=== PATIENT | male | born 1960 | race Caucasian/White ===

== ENCOUNTER 2017-02-07 11:04 | Inpatient (IN) ==
--- NOTE | 2017-02-07 11:17 | Emergency Department Note ---
Disposition Clinical Impression: Congestive heart failure, Dyspnea, Elevated troponin I level Disposition: Admitted As Inpatient Condition: Good General Adult HPI - General Chief complaint: ED Shortness of Breath/Dyspnea Stated complaint: Leg/Stomach Swelling Time Seen by Provider: 02/07/17 11:14 Source: patient Limitations: no limitations - History of Present Illness Pain Scale: 2 - Related Data Home Medications Medication Instructions Recorded Confirmed Glimepiride [Amaryl] 8 mg PO QAM 08/18/16 02/07/17 Lisinopril [Zestril] 40 mg PO DAILY 08/18/16 02/07/17 Lovastatin [Mevacor] 20 mg PO DAILY 08/18/16 02/07/17 Metformin HCl [Glucophage] 1,000 mg PO BID 08/18/16 02/07/17 Ranitidine HCl [Zantac] 150 mg PO BID 08/18/16 02/07/17 SitaGLIPtin [Januvia] 100 mg PO DAILY 08/18/16 02/07/17 Tramadol HCl [Ultram] 50 mg PO DAILY PRN 08/18/16 02/07/17 Aspirin 325 mg PO DAILY 02/07/17 02/07/17 Furosemide [Lasix] 40 mg PO DAILY 02/07/17 02/07/17 Metoprolol [Lopressor] 25 mg PO BID 02/07/17 02/07/17 Allergies Allergy/AdvReac Type Severity Reaction Status Date / Time No Known Allergies Allergy Verified 08/18/16 09:07 Past Medical History - Past Medical History Medical history: Reports: diabetes, hyperlipidemia, hypertension Psychiatric history: Reports: no psych history - Social History Smoking Status: Never smoker Smokeless Tobacco Status: No Alcohol use: Reports: rarely, occasionally Drug use: Reports: none Physical Exam - General Limitations: no limitations General appearance: alert, in no apparent distress Course Vital Signs Temperature 98.1 F 02/07/17 11:08 Pulse Rate 94 02/07/17 11:08 Respiratory Rate 16 02/07/17 11:08 Blood Pressure 129/94 02/07/17 11:08 O2 Sat by Pulse Oximetry 98 02/07/17 11:08 Temperature 99 F 02/07/17 18:04 Pulse Rate 92 02/07/17 18:04 Respiratory Rate 16 02/07/17 18:04 Blood Pressure 123/85 02/07/17 18:04 O2 Sat by Pulse Oximetry 98 02/07/17 20:10 Oxygen Delivery Oxygen Delivery Room Air Medical Decision Making - Lab Data Result diagrams: 02/07/17 11:38 02/07/17 11:38 Lab Results 02/07/17 02/07/17 02/07/17 Range/Units 11:38 11:38 11:38 WBC 11.8 H (4.3-11.1) K/mcL RBC 5.32 (4.19-5.50) M/mcL Hgb 14.4 (12.9-16.9) g/dL Hct 46.5 (37.5-50.1) % MCV 87.4 (83.0-100.0) fL MCH 27.1 L (28.0-33.3) pg MCHC 31.0 L (31.6-35.5) g/dL RDW 16.9 H (11.5-14.5) % Plt Count 267 (140-400) K/mcL MPV 11.3 (9.4-12.4) fL Immature Gran % 0.4 (0-4) % Seg Neutrophils % 64.6 % Lymphocytes % 25.3 % Monocytes % 8.5 % Eosinophils % 0.8 % Basophils % 0.4 % Neutrophils # 7.6 (1.6-8.9) K/mcL Lymphocytes # 3.0 (0.6-4.6) K/mcL Monocytes # 1.0 (0.0-1.3) K/mcL Eosinophils # 0.1 (0.0-0.6) K/mcL Basophils # 0.1 (0.0-0.2) K/mcL Sodium 137 (136-145) mEq/L Potassium 4.2 (3.5-4.5) mEq/L Chloride 99 (98-109) mEq/L Carbon Dioxide 27 (19-29) mEq/L BUN 22 (8-26) mg/dL Creatinine 1.47 H (0.72-1.25) mg/dL Est GFR ( Amer) 60 (> 60) Est GFR (Non-Af Amer) 49 L (> 60) BUN/Creatinine Ratio 15 (6-26) Glucose 223 H (70-99) mg/dL Est Mean Plasma Glucose mg/dl Hemoglobin A1c ( - 5.6) % Calculated Osmolality 294 (280-300) Calcium 10.1 (8.6-10.8) mg/dL Total Bilirubin 2.2 H (0.2-1.2) mg/dL AST 28 (5-34) Units/L ALT 15 (0-55) Units/L Alkaline Phosphatase 101 (38-126) Units/L Troponin I 0.04 H* (0-0.03) ng/mL B-Natriuretic Peptide (0-100) pg/mL Serum Total Protein 6.8 (6.0-8.3) g/dL Albumin 3.5 (3.5-5.0) g/dL Globulin 3.3 (2.4-3.5) g/dL Albumin/Globulin Ratio 1.1 (1.1-2.2) 02/07/17 02/07/17 Range/Units 11:38 11:41 WBC (4.3-11.1) K/mcL RBC (4.19-5.50) M/mcL Hgb (12.9-16.9) g/dL Hct (37.5-50.1) % MCV (83.0-100.0) fL MCH (28.0-33.3) pg MCHC (31.6-35.5) g/dL RDW (11.5-14.5) % Plt Count (140-400) K/mcL MPV (9.4-12.4) fL Immature Gran % (0-4) % Seg Neutrophils % % Lymphocytes % % Monocytes % % Eosinophils % % Basophils % % Neutrophils # (1.6-8.9) K/mcL Lymphocytes # (0.6-4.6) K/mcL Monocytes # (0.0-1.3) K/mcL Eosinophils # (0.0-0.6) K/mcL Basophils # (0.0-0.2) K/mcL Sodium (136-145) mEq/L Potassium (3.5-4.5) mEq/L Chloride (98-109) mEq/L Carbon Dioxide (19-29) mEq/L BUN (8-26) mg/dL Creatinine (0.72-1.25) mg/dL Est GFR ( Amer) (> 60) Est GFR (Non-Af Amer) (> 60) BUN/Creatinine Ratio (6-26) Glucose (70-99) mg/dL Est Mean Plasma Glucose 214 mg/dl Hemoglobin A1c 9.1 H ( - 5.6) % Calculated Osmolality (280-300) Calcium (8.6-10.8) mg/dL Total Bilirubin (0.2-1.2) mg/dL AST (5-34) Units/L ALT (0-55) Units/L Alkaline Phosphatase (38-126) Units/L Troponin I (0-0.03) ng/mL B-Natriuretic Peptide 3514 H (0-100) pg/mL Serum Total Protein (6.0-8.3) g/dL Albumin (3.5-5.0) g/dL Globulin (2.4-3.5) g/dL Albumin/Globulin Ratio (1.1-2.2) Attestation Statement - Attestation Attestation: I examined this patient and my medical decision-making was reviewed with the Resident Physician. I agree with the documented findings, disposition and treatment plan as described except to the extent set forth below. [id number] time provided in conjunction with the resident physician Dr. Torres Patient complains of progressive dyspnea and edema over the past 2 weeks. He is sitting upright on the edge of the stretcher at the time I examined appears in no acute respiratory distress. Peripheral edema present on exam. Recent echo indicates systolic ejection fraction 55%. Plan of care and management discussed by me with the resident physician
--- NOTE | 2017-02-07 11:39 | Emergency Department Note ---
Disposition Clinical Impression: Elevated troponin I level Congestive heart failure Qualifiers: Congestive heart failure type: unspecified congestive heart failure type Congestive heart failure chronicity: acute Qualified Code(s): I50.9 - Heart failure, unspecified Dyspnea Qualifiers: Dyspnea type: dyspnea on exertion Qualified Code(s): R06.09 - Other forms of dyspnea Disposition: Admitted As Inpatient Time of Disposition: 12:55 General Adult HPI - General Chief complaint: ED Shortness of Breath/Dyspnea Stated complaint: Leg/Stomach Swelling Time Seen by Provider: 02/07/17 11:14 Source: patient Limitations: no limitations Nursing Notes Reviewed: Yes Vital Signs Reviewed: Yes - History of Present Illness HPI Narrative: This is a 56-year-old male with a past medical history of chronic kidney disease , diabetes, hyperlipidemia, hypertension who presents to the emergency department with a 3 month history of worsening shortness of breath. He states that 3 months ago he was diagnosed with pneumonia and received a 10 day course of antibiotics. He stated that his shortness of breath did not improve afterwards, and only gotten worse. He states that he is having excessive swelling in his lower extremities as well as abdomen. He states that he is becoming short of breath doing daily activities. He has been taking Lasix at home daily 40 mg per day. He states that this is not helped or alleviating shortness of breath. Patient denies any history of smoking or being around smokers. Pain Scale: 2 - Related Data Home Medications Medication Instructions Recorded Confirmed Aspirin Enteric Coated [Aspirin EC] 81 mg PO DAILY 08/18/16 08/18/16 Canagliflozin [Invokana] 300 mg PO DAILY 08/18/16 08/18/16 Glimepiride [Amaryl] 8 mg PO DAILY 08/18/16 08/18/16 Lisinopril [Zestril] 40 mg PO DAILY 08/18/16 08/18/16 Lovastatin [Mevacor] 20 mg PO DAILY 08/18/16 08/18/16 Metformin HCl [Glucophage] 1,000 mg PO BID 08/18/16 08/18/16 Ranitidine HCl [Zantac] 150 mg PO DAILY 08/18/16 08/18/16 SitaGLIPtin [Januvia] 100 mg PO DAILY 08/18/16 08/18/16 Tramadol HCl [Ultram] 50 mg PO QID PRN 08/18/16 08/18/16 Previous Rx's Medication Instructions Recorded Metoprolol Tartrate [Lopressor] 50 mg PO BID #30 tablet 08/18/16 Allergies Allergy/AdvReac Type Severity Reaction Status Date / Time No Known Allergies Allergy Verified 08/18/16 09:07 All systems ED: reviewed and negative except as stated. Constitutional: Reports: weight change (Weight gain of 10 pounds in the last 2 weeks). Denies: fever, chills ENT ED: Reports: other (Hoarseness) Cardiovascular: Reports: dyspnea on exertion, orthopnea, edema, paroxysmal nocturnal dyspnea. Denies: chest pain, palpitations Respiratory: Reports: cough Gastrointestinal: Denies: abdominal pain, nausea, vomiting, constipation Genitourinary: Reports: other (Oliguric) Musculoskeletal: Denies: back pain, neck pain, joint swelling, arthralgia Neurological: Denies: headache Endocrine: Reports: fatigue Past Medical History - Past Medical History Medical history: Reports: diabetes, hyperlipidemia, hypertension Psychiatric history: Reports: no psych history - Social History Smoking Status: Never smoker Smokeless Tobacco Status: No Alcohol use: Reports: rarely, occasionally Drug use: Reports: none Physical Exam - General Limitations: no limitations General appearance: alert, other (56-year-old male who is not obese but appears to be edematous in the abdomen and lower 70s) - ENT ENT exam: mucous membranes moist - Neck Neck exam: Present: trachea midline. Absent: tenderness, meningismus, lymphadenopathy - Chest Chest inspection: Present: normal inspection, symmetric chest wall rise. Absent : tenderness, rash, abscess - Respiratory Respiratory exam: Present: other (Diminished breath sounds in the right lower lobe). Absent: respiratory distress - Abdominal Exam Abdominal exam: Present: Non-Tender, distention, other (Abdomen is firm, periumbilical hernia). Absent: guarding - Extremities Exam Extremities exam: Present: pedal edema (3+ bilaterally) - Skin Skin exam: Present: warm, dry Course Course Narrative: This is a 56-year-old male who presented to the emergency department with increasing shortness of breath over the last 3 months as well as 10 pounds weight gain in the last 2 weeks, less urine output, and increasing swelling of the lower extremities and abdomen. This is immediately concerned for congestive heart failure, chronic kidney disease, hepatic failure. We are going to obtain a chest x-ray, EKG, BMP, BNP, CBC. - Reevaluation(s) Reevaluation #1: Patient has an elevated troponin of 0.04, an elevated BNP of 3514. He also has a chest x-ray that has a significant right-sided pleural effusion. Due to failure of his outpatient management and increasing symptoms of shortness of breath, lower extremity edema, and abdominal distention, I will admit this patient to the hospital at this time for management of his congestive heart failure. I spoke with the hospitalist Dr. Degroot he has agreed to accept the admission. Time: 12:50 Vital Signs Temperature 98.1 F 02/07/17 11:08 Pulse Rate 94 02/07/17 11:08 Respiratory Rate 16 02/07/17 11:08 Blood Pressure 129/94 02/07/17 11:08 O2 Sat by Pulse Oximetry 98 02/07/17 11:08 Temperature 98.1 F 02/07/17 11:08 Pulse Rate 94 02/07/17 11:08 Respiratory Rate 16 02/07/17 11:08 Blood Pressure 129/94 02/07/17 11:08 O2 Sat by Pulse Oximetry 98 02/07/17 11:08 Oxygen Delivery Oxygen Delivery Room Air Medical Decision Making - Lab Data Result diagrams: 02/07/17 11:38 02/07/17 11:38 Lab Results 02/07/17 02/07/17 02/07/17 Range/Units 11:38 11:38 11:38 WBC 11.8 H (4.3-11.1) K/mcL RBC 5.32 (4.19-5.50) M/mcL Hgb 14.4 (12.9-16.9) g/dL Hct 46.5 (37.5-50.1) % MCV 87.4 (83.0-100.0) fL MCH 27.1 L (28.0-33.3) pg MCHC 31.0 L (31.6-35.5) g/dL RDW 16.9 H (11.5-14.5) % Plt Count 267 (140-400) K/mcL MPV 11.3 (9.4-12.4) fL Immature Gran % 0.4 (0-4) % Seg Neutrophils % 64.6 % Lymphocytes % 25.3 % Monocytes % 8.5 % Eosinophils % 0.8 % Basophils % 0.4 % Neutrophils # 7.6 (1.6-8.9) K/mcL Lymphocytes # 3.0 (0.6-4.6) K/mcL Monocytes # 1.0 (0.0-1.3) K/mcL Eosinophils # 0.1 (0.0-0.6) K/mcL Basophils # 0.1 (0.0-0.2) K/mcL Sodium 137 (136-145) mEq/L Potassium 4.2 (3.5-4.5) mEq/L Chloride 99 (98-109) mEq/L Carbon Dioxide 27 (19-29) mEq/L BUN 22 (8-26) mg/dL Creatinine 1.47 H (0.72-1.25) mg/dL Est GFR ( Amer) 60 (> 60) Est GFR (Non-Af Amer) 49 L (> 60) BUN/Creatinine Ratio 15 (6-26) Glucose 223 H (70-99) mg/dL Calculated Osmolality 294 (280-300) Calcium 10.1 (8.6-10.8) mg/dL Total Bilirubin 2.2 H (0.2-1.2) mg/dL AST 28 (5-34) Units/L ALT 15 (0-55) Units/L Alkaline Phosphatase 101 (38-126) Units/L Troponin I 0.04 H* (0-0.03) ng/mL B-Natriuretic Peptide (0-100) pg/mL Serum Total Protein 6.8 (6.0-8.3) g/dL Albumin 3.5 (3.5-5.0) g/dL Globulin 3.3 (2.4-3.5) g/dL Albumin/Globulin Ratio 1.1 (1.1-2.2) 02/07/17 Range/Units 11:38 WBC (4.3-11.1) K/mcL RBC (4.19-5.50) M/mcL Hgb (12.9-16.9) g/dL Hct (37.5-50.1) % MCV (83.0-100.0) fL MCH (28.0-33.3) pg MCHC (31.6-35.5) g/dL RDW (11.5-14.5) % Plt Count (140-400) K/mcL MPV (9.4-12.4) fL Immature Gran % (0-4) % Seg Neutrophils % % Lymphocytes % % Monocytes % % Eosinophils % % Basophils % % Neutrophils # (1.6-8.9) K/mcL Lymphocytes # (0.6-4.6) K/mcL Monocytes # (0.0-1.3) K/mcL Eosinophils # (0.0-0.6) K/mcL Basophils # (0.0-0.2) K/mcL Sodium (136-145) mEq/L Potassium (3.5-4.5) mEq/L Chloride (98-109) mEq/L Carbon Dioxide (19-29) mEq/L BUN (8-26) mg/dL Creatinine (0.72-1.25) mg/dL Est GFR ( Amer) (> 60) Est GFR (Non-Af Amer) (> 60) BUN/Creatinine Ratio (6-26) Glucose (70-99) mg/dL Calculated Osmolality (280-300) Calcium (8.6-10.8) mg/dL Total Bilirubin (0.2-1.2) mg/dL AST (5-34) Units/L ALT (0-55) Units/L Alkaline Phosphatase (38-126) Units/L Troponin I (0-0.03) ng/mL B-Natriuretic Peptide 3514 H (0-100) pg/mL Serum Total Protein (6.0-8.3) g/dL Albumin (3.5-5.0) g/dL Globulin (2.4-3.5) g/dL Albumin/Globulin Ratio (1.1-2.2) - Radiology Data Radiology results reviewed: Yes I reviewed the patient's radiology results. - EKG Data EKG #1 EKG attestation: Yes I reviewed and interpreted this EKG. EKG results narrative: 02/07/2017 11:57 Ventricular rate 90 bpm, MN interval 208 ms, QRS duration 98 ms, QT 381 ms, QTC 432 ms, normal axis. Sinus rhythm with occasional premature ventricular complexes. This is unchanged from a previous EKG performed on 08/09/2016. There are no new ischemic ST changes.
[2017-02-07 11:47] LABS: Basophils # 0.1 K/mcL (0.0-0.2); Basophils % 0.4 %; Eosinophils # 0.1 K/mcL (0.0-0.6); Eosinophils % 0.8 %; Hematocrit 46.5 % (37.5-50.1); Hemoglobin 14.4 g/dL (12.9-16.9); Immature Granulocytes % 0.4 % (0-4); Lymphocytes % 25.3 %; Mean Corpuscular Hemoglobin 27.1 pg (28.0-33.3); Mean Corpuscular Volume 87.4 fL (83.0-100.0); Mean Platelet Volume 11.3 fL (9.4-12.4); Monocytes % 8.5 %; Neutrophils # 7.6 K/mcL (1.6-8.9); Platelet Count 267 K/mcL (140-400); Red Blood Count 5.32 M/mcL (4.19-5.50); Red Cell Distribution Width 16.9 % (11.5-14.5); Segmented Neutrophils % 64.6 %
[2017-02-07 12:00] LABS: Albumin 3.5 g/dL (3.5-5.0); Albumin/Globulin Ratio 1.1 (1.1-2.2); Bilirubin,Total 2.2 mg/dL (0.2-1.2); Calcium 10.1 mg/dL (8.6-10.8); Globulin 3.3 g/dL (2.4-3.5); Potassium 4.2 mEq/L (3.5-4.5); Total Protein 6.8 g/dL (6.0-8.3)
[2017-02-07] MEDS ORDERED: Furosemide 40 MG TABLET PO ONE (12:33)
[2017-02-07] MEDS ORDERED: Ondansetron 4 MG/2 ML VIAL IVP PRN (13:34)
[2017-02-07] MEDS ORDERED: Naloxone 0.4 MG/ML INJ IVP PRN (13:34)
[2017-02-07] MEDS ORDERED: Acetaminophen 325 MG TABLET PO PRN (13:34)
--- NOTE | 2017-02-07 13:56 | Internal Med History&Physical ---
<RiveraDariana Chambers - Last Filed: 02/07/17 14:08> Date of Encounter: 02/07/17 Time of Encounter: 13:54 Assessment and Plan (1) Recurrent right pleural effusion Current visit: Yes Status: Acute Presented with worsening shortness of breath for 3 months prior to presentation. 02/05/[address] with moderate to large right pleural effusion with associated atelectatic changes. Suspect this is cause of shortness of breath. 08/2016 echo with EF 55%, and indeterminate diastolic dysfunction. Diuresis with IV Lasix, Zaroxolyn. IR consulted for thoracentesis. Repeat echo pending (2) Ascites Current visit: Yes Status: Acute 02/05/[address] with moderate amount of ascites. Drinks occasional etoh, LFTs normal. Bilirubin 2.2. Suspect secondary to congestion with fluids overload. RUQ US pending. Monitor repeat LFTs Qualifiers: Ascites type: other type Qualified Code(s): R18.8 - Other ascites (3) Essential hypertension Current visit: Yes Status: Acute per hx. BP controlled. Cont home BP medications. Monitor BP and titrate PRN (4) Diabetes Current visit: Yes Status: Acute per hx. Control unknown . Holding home oral hypoglycemics. SSI while inpatient. Monitor blood sugar and titrate PRN Qualifiers: Diabetes mellitus type: type 2 Diabetes mellitus complication status: without complication Diabetes mellitus terminal operations manager insulin use: without terminal operations manager use Qualified Code(s): E11.9 - Type 2 diabetes mellitus without complications (5) CAD (coronary artery disease) Current visit: Yes Status: Acute 08/2016 [facility] with mild disease. Denies CP. Cont home ASA, statin, BB Qualifiers: Coronary Disease-Associated Artery/Lesion type: [place] artery [place] vs. transplanted heart: [place] heart Associated angina: without angina Qualified Code(s): I25.10 - Atherosclerotic heart disease of [place] coronary artery without angina pectoris (6) DVT prophylaxis Current visit: Yes Status: Acute SCDs for now; can add prophylaxis once thoracenetsis completed Internal Medicine - H&P: HPI Chief complaint: SOB Admitted From: Home History of present illness: Mr. Rios is a 56 year old male with PMH diabetes, CAD and HTN who presented to [facility] on 02/07/2017 with complaints of shortness of breath. He is placed in observation status for further workup and treatment. Information obtained from chart review and patient report. Patient reports progressively worsening shortness of breath for the last 2 or 3 months. Now says lower extremities are swelling over the last 2-3 weeks along with weight gain and fatigue. Says he is so short of breath that he has to stop to rest after walking a few steps. He is on Lasix at home and reports medication compliance. He does not watch his salt intake. Still short of breath all my exam no change from presentation. Denies chest pain. Past Med Surg Social Fam HX - Past Medical History Medical history: diabetes, hyperlipidemia, hypertension Psychiatric history: no psych history - Past Surgical History Surgical History: non-contributory - Social History Smoking Status: Never smoker Smokeless Tobacco Status: No Alcohol use: rarely, occasionally Drug use: none - Family History Mother Hx Family Cardiac Disorders: Yes Father Living Status: Age at : 56 Cause of : Lung CA Hx Family Cancer: Yes (Lung) Internal Medicine - H&P: Meds Glimepiride [Amaryl] 8 mg PO QAM 08/18/16 [History] Lisinopril [Zestril] 40 mg PO DAILY 08/18/16 [History] Lovastatin [Mevacor] 20 mg PO DAILY 08/18/16 [History] Metformin HCl [Glucophage] 1,000 mg PO BID 08/18/16 [History] Ranitidine HCl [Zantac] 150 mg PO BID 08/18/16 [History] SitaGLIPtin [Januvia] 100 mg PO DAILY 08/18/16 [History] Tramadol HCl [Ultram] 50 mg PO DAILY PRN 08/18/16 [History] Aspirin 325 mg PO DAILY 02/07/17 [History] Furosemide [Lasix] 40 mg PO DAILY 02/07/17 [History] Metoprolol [Lopressor] 25 mg PO BID 02/07/17 [History] 3 Allergy/AdvReac Type Severity Reaction Status Date / Time No Known Allergies Allergy Verified 08/18/16 09:07 All Systems PM: A 10-system review of systems was performed and is negative for pertinent findings except as documented above in the HPI. - Constitutional Constitutional: weight gain, no chills, no fever(s), no night sweats - EENT Eyes: no change in vision, no discharge, no pain, no photophobia Ears: no ear discharge, no ear pain, no tinnitus Nose, mouth and throat: no dysphagia, no nasal discharge, no neck pain, no sore throat - Cardiovascular Cardiovascular ROS IM: no chest pain, no diaphoresis, no dyspnea, no lightheadedness, no palpitations, no syncope - Respiratory Respiratory: dyspnea, dyspnea on exertion, no cough, no wheezing, no excessive phlegm production - Gastrointestinal Gastrointestinal: no abdominal pain, no diarrhea, no hematemesis, no hematochezia, no melena, no nausea, no vomiting - Musculoskeletal Musculoskeletal ROS IM: joint swelling, no numbness, no tingling - Integumentary Integumentary IM: no rash, no unusual bruising - Neurological Neurological ROS: no confusion, no convulsions, no focal weakness, no numbness, no tingling, no tremor(s) - Hematologic/Lymphatic Hematologic/Lymphatic: no easy bruising - Constitutional Vitals: Temp Pulse Resp BP Pulse Ox 98.1 F 94 18 106/86 98 02/07/17 11:08 02/07/17 11:08 02/07/17 13:21 02/07/17 13:21 02/07/17 11:08 General appearance: Present: mild distress, A&O X 3, morbidly obese - Head Head exam: Present: atraumatic, normocephalic - Eye Eye exam: Present: PERRL, conjuntiva pink, sclera anicteric Pupils: Present: PERRL - Neck Neck exam general surgery: Present: supple, trachea midline. Absent: lymphadenopathy - Respiratory Respiratory exam: Present: decreased breath sounds (right lower lobe diminished , poor air exchange ), CTAB. Absent: accessory muscle use, rales, rhonchi, wheezes - Cardiovascular Cardiovascular exam: Present: RRR, +S1, +S2. Absent: diastolic murmur, gallop, rubs, systolic murmur - GI/Abdominal GI/Abdominal exam: Present: distended, firm, normal bowel sounds, soft, no peritoneal signs. Absent: tenderness - Extremities Exam Extremities exam: Present: pedal edema, warm, radial pulses palpable and symmetrical. Absent: calf tenderness, cyanotic - Neurological Exam Neurological exam: Present: CN II-XII intact, oriented X3, no focal deficits. Absent: pronater drift, facial droop, speech deficit - Skin Skin exam: Present: dry, intact Internal Med - H&P Results - Labs CBC & Chem 7: 02/07/17 11:38 02/07/17 11:38 <Mg Martino - Last Filed: 02/07/17 18:08> Date of Encounter: 02/07/17 Internal Medicine - H&P: HPI History of present illness: Mr. Rios is a 56 year old male All Systems PM: A 10-system review of systems was performed and is negative for pertinent findings except as documented above in the HPI. - Constitutional Vitals: Temp Pulse Resp BP Pulse Ox 97.7 F 67 17 117/91 92 02/07/17 14:09 02/07/17 16:04 02/07/17 14:09 02/07/17 16:04 02/07/17 14:09 Internal Med - H&P Results - Labs CBC & Chem 7: 02/07/17 11:38 02/07/17 11:38 - Impressions ITS Impressions Abdomen Ultrasound 02/07/17 15:52 IMPRESSION: Moderate ascites. Sludge and stones within the gallbladder with no definite sonographic cholecystitis. If there is clinical concern a nuclear medicine hepatobiliary scan could always be performed. D/ / 02/07/2017 17:36:27 Arnel Mendez MD / annetta Interpreting Provider: Arnel Mendez MD - Attending Attestation I have slowly seen and examined the patient and discussed the plan with advanced nurse practitioner. Patient came in with the complaint of orthopnea increased bilateral leg edema and in ER chest x-ray and CT showed right-sided pleural effusion as well as abdominal ascites. We suspect that if ascites is probably due to right-sided failure and an ultrasound of the liver has been ordered. Troponin are slightly elevated in the range of 0.04 which seem more like demand ischemia due to CHF. Our plan is to aggressively diurese patient with the IV Lasix 80 twice a day and Zaroxolyn 10 while keeping an eye on electrolytes as patient has been returning with this problem again and again. His EF is 55% and chest x-ray does not show significant moderate edema but I suspect as he will diurese him his overall condition will improve. In such case slight elevation of creatinine should be acceptable. Right pleural effusion will be tapped by a radiologist to make sure that it is not infected.
[2017-02-07 15:29] LABS: INR 1.5; Prothrombin Time 16.8 Seconds (9.4-12.1)
[2017-02-07] MEDS ORDERED: traMADol 50 MG TABLET PO PRN (15:45)
[2017-02-07] MEDS ORDERED: D5% in Water 1,000 ML IVC PRN (15:46)
[2017-02-07] MEDS ORDERED: Dextrose Gel 15 GM PO PRN ×2 (15:46)
[2017-02-07] MEDS ORDERED: *HR* Dextrose 50 % in Water (Syg) 50 ML SYRINGE IVP PRN (15:46)
[2017-02-07] MEDS: Furosemide 40 MG/4 ML VIAL IVP SCH ×2 (16:04→18:05)
[2017-02-07 16:19] LABS: Hemoglobin A1C 9.1 %
[2017-02-07 17:14] LABS: RBC,Pleural Fluid < 0.002 M/mcL
[2017-02-07] MEDS: metOLazone 5 MG TABLET PO SCH (17:36)
[2017-02-07] MEDS: Insulin LISPRO 300 UNITS/3 ML VIAL SQ SCH ×2 (17:44→20:47)
[2017-02-07 18:02] LABS: LDH,Pleural Fluid 63 Units/L (No Ref Range)
[2017-02-07] MEDS ORDERED: Furosemide 20 MG/2 ML VIAL IVP ONE (18:03)
[2017-02-07 19:24] LABS: Appearance of Pleural Fl Clear (Clear)
[2017-02-07] MEDS: Famotidine 20 MG TABLET PO SCH (20:17)
[2017-02-08 05:05] LABS: Hematocrit 41.5 % (37.5-50.1); Hemoglobin 13.5 g/dL (12.9-16.9); Mean Corpuscular HGB Conc 32.5 g/dL (31.6-35.5); Mean Corpuscular Hemoglobin 27.7 pg (28.0-33.3); Mean Corpuscular Volume 85.2 fL (83.0-100.0); Mean Platelet Volume 11.1 fL (9.4-12.4); Platelet Count 209 K/mcL (140-400); Red Blood Count 4.87 M/mcL (4.19-5.50); Red Cell Distribution Width 16.8 % (11.5-14.5)
[2017-02-08 05:48] LABS: Alanine Aminotransferase 15 Units/L (0-55); Albumin/Globulin Ratio 1.2 (1.1-2.2); Alkaline Phosphatase 92 Units/L (38-126); Aspartate Amino Transferase 24 Units/L (5-34); BUN/Creatinine Ratio 16 (6-26); Bilirubin,Total 1.8 mg/dL (0.2-1.2); Blood Urea Nitrogen 22 mg/dL (8-26); Calcium 9.4 mg/dL (8.6-10.8); Carbon Dioxide 28 mEq/L (19-29); Chloride 100 mEq/L (98-109); Globulin 2.6 g/dL (2.4-3.5); Glucose 152 mg/dL (70-99); Osmolality,Calculated 292 (280-300); Sodium 138 mEq/L (136-145); Total Protein 5.7 g/dL (6.0-8.3); eGFR For African Americans > 60 (> 60); eGFR For Non-African Americans 54 (> 60)
[2017-02-08 05:49] LABS: Albumin 3.1 g/dL (3.5-5.0)
[2017-02-08] MEDS: Furosemide 40 MG/4 ML VIAL IVP SCH ×2 (08:12→17:12)
[2017-02-08] MEDS: metOLazone 5 MG TABLET PO SCH (08:13)
[2017-02-08] MEDS: Famotidine 20 MG TABLET PO SCH ×2 (08:14→20:23)
[2017-02-08] MEDS: Aspirin 325 MG TABLET PO SCH (08:15)
[2017-02-08] MEDS: Insulin LISPRO 300 UNITS/3 ML VIAL SQ SCH ×5 (08:29→20:20)
[2017-02-08] MEDS ORDERED: Lisinopril 20 MG TABLET PO SCH (09:00)
--- NOTE | 2017-02-08 10:23 | Internal Med Progress Note ---
Date of Encounter: 02/08/17 Time of Encounter: 09:10 - Assessment and plan (1) Recurrent right pleural effusion Current Visit: Yes Status: Acute Assessment and plan: Patient had a right thoracentesis yesterday, peripheral smear is pending. Chest CT prior to procedure showed moderate to large right pleural effusion and minimal left. There are indeterminate bilateral pulmonary nodules measuring up to 7.6 mm., Also noted was ascites. Patient will need to follow-up with a CT at 6-12 months for reevaluation of the nodules. Patient states that he is breathing significantly better, he is no longer dyspneic with exertion. He is not requiring minimal oxygen. Room air sats in the mid to high 90s. Continue to monitor labs, vitals, patient condition. Oxygen as needed to maintain sats greater than 92%. (2) CKD (chronic kidney disease) stage 3, GFR 30-59 ml/min Current Visit: Yes Status: Chronic Assessment and plan: Serum creatinine 1.35, GFR 54. This appears to be right about patient's baseline. Is improved since yesterday. Avoid nephrotoxins. (3) Congestive heart failure Current Visit: Yes Status: Acute Assessment and plan: Acute on chronic. BNP is 3514. Patient has large amount of lower extremity edema, bilateral extremities to knees are hard, +4 pitting edema. Patient states his legs are a little bit worse than normal. We will continue to diurese. Patient had pleural effusion with thoracentesis to right side yesterday, also has a small left pleural effusion. His lungs are diminished and with rails padded throughout. Echocardiogram in August shows normal systolic function with LVEF of 55%, normal RV function, moderately dilated left atrium, moderate MR, mild ME, and rheumatic appearing mitral valve. Continue diuresis IV Lasix Continue telemetry 1.5 L fluid restriction, low sodium diet, daily weights, strict I and O. Qualifiers: Congestive heart failure type: unspecified congestive heart failure type Congestive heart failure chronicity: acute on chronic Qualified Code(s): I50.9 - Heart failure, unspecified (4) Dyspnea Current Visit: Yes Status: Acute Assessment and plan: Patient reports increasing dyspnea recently, most likely due to pleural effusion and ascites, CHF exacerbation. States that he is significantly better at this time after thoracentesis yesterday. He will stay for continued diuresis. We will continue to monitor his condition and vitals including pulse ox. Oxygen as needed to maintain sats greater than 92%. Qualifiers: Dyspnea type: dyspnea on exertion Qualified Code(s): R06.09 - Other forms of dyspnea (5) Elevated troponin I level Current Visit: Yes Status: Acute Assessment and plan: Patient has mild, flat elevation of troponin in the setting of congestive heart failure, and states 3 renal disease. He denies chest pain. Echo as stated above. Patient had C in August, with mild nonobstructive coronary artery disease in the LV is normal with an EF of 50-55%. Continue supply assistant vital signs Treat chest pain with aspirin, nitroglycerin. (6) Essential hypertension Current Visit: Yes Status: Chronic Assessment and plan: Well-controlled. Continue home medications. (7) Diabetes Current Visit: Yes Status: Chronic Assessment and plan: Uncontrolled. A1c is 9.1. Continue sliding scale insulin, diabetic diet, Accu- Cheks before meals and at bedtime. Consider referral to diabetes education on discharge. Qualifiers: Diabetes mellitus type: type 2 Diabetes mellitus complication status: without complication Diabetes mellitus [facility] insulin use: without [facility] use Qualified Code(s): E11.9 - Type 2 diabetes mellitus without complications (8) CAD (coronary artery disease) Current Visit: Yes Status: Acute Assessment and plan: Chronic. Continue aspirin, beta gloria. Qualifiers: Coronary Disease-Associated Artery/Lesion type: [place] artery [place] vs. transplanted heart: [place] heart Associated angina: without angina Qualified Code(s): I25.10 - Atherosclerotic heart disease of [place] coronary artery without angina pectoris (9) Ascites Current Visit: Yes Status: Acute Assessment and plan: Patient with moderate amount of ascites surrounding the liver, it is grossly unremarkable in its appearance. Patient denies liver disease. Abdomen is distended and hard. There is no elevation in the AST and ALT, albumin is 3.1. We will continue to monitor. Qualifiers: Ascites type: other type Qualified Code(s): R18.8 - Other ascites (10) DVT prophylaxis Current Visit: Yes Status: Acute Assessment and plan: Patient is ambulatory. KELSEY oneale for DVT prophylaxis as well as peripheral edema. - Time Spent With Patient less than 15 minutes - Subjective Interval history: Patient was seen and assessed at 9:10 AM. There are multiple family members in the room. He is sitting up on the side of the bed and states that he feels better than he has felt a very long time. He denies shortness of breath with exertion. His abdomen is hard and distended, he denies pain. Family states that his abdomen appears larger and then it does normally, patient does not appear to be concerned. Patient is agreeable to staying again for further diuresis. - Constitutional Vitals: Temp Pulse Resp BP Pulse Ox 97.9 F 82 16 128/84 97 02/08/17 07:26 02/08/17 07:26 02/08/17 07:26 02/08/17 07:26 02/08/17 07:26 General appearance: Present: A&O X 3, morbidly obese, pleasant, no acute distress, answers questions appropriately - Head Head exam: Present: atraumatic, normal inspection, normocephalic - Eye Eye exam: Present: scleral icterus, conjuntiva pink - ENT ENT exam: Present: mucous membranes moist, normal exam, normal external ear exam - Neck Neck exam general surgery: Present: normal inspection, trachea midline. Absent : lymphadenopathy, tenderness - Respiratory Respiratory exam: Present: decreased breath sounds, CTAB. Absent: chest wall tenderness, rales, respiratory distress, rhonchi, stridor, wheezes - Cardiovascular Cardiovascular exam: Present: RRR, +S1, +S2. Absent: diastolic murmur, systolic murmur - GI/Abdominal GI/Abdominal exam: Present: distended, firm, hypoactive bowel sounds. Absent: tenderness - Extremities Exam Extremities exam: Present: pedal edema, tenderness, warm, radial pulses palpable and symmetrical. Absent: normal inspection - Neurological Exam Neurological exam: Present: alert, oriented X3, no focal deficits. Absent: altered, facial droop, speech deficit - Skin Skin exam: Present: dry, intact, warm. Absent: rash, urticaria Internal Medicine: Result - Labs CBC & Chem 7: 02/08/17 04:45 02/08/17 04:45 Labs: Short CBC 02/08/17 Range/Units 04:45 WBC 8.8 (4.3-11.1) K/mcL Hgb 13.5 (12.9-16.9) g/dL Hct 41.5 (37.5-50.1) % Plt Count 209 (140-400) K/mcL BMP 02/08/17 04:45 Sodium 138 Potassium 4.0 Chloride 100 Carbon Dioxide 28 BUN 22 Creatinine 1.35 H Glucose 152 H Calcium 9.4 Cardiac Enzymes 02/08/17 Range/Units 08:39 Troponin I 0.06 H* (0-0.03) ng/mL Liver Function 02/08/17 Range/Units 04:45 Total Bilirubin 1.8 H (0.2-1.2) mg/dL AST 24 (5-34) Units/L ALT 15 (0-55) Units/L Alkaline Phosphatase 92 (38-126) Units/L Albumin 3.1 L (3.5-5.0) g/dL - ABG Interpretation ABG results: PT/INR, D-dimer PT 16.8 Seconds (9.4-12.1) H 02/07/17 14:45 - Impressions Impressions Abdomen Ultrasound 02/07/17 15:52 IMPRESSION: Moderate ascites. Sludge and stones within the gallbladder with no definite sonographic cholecystitis. If there is clinical concern a nuclear medicine hepatobiliary scan could always be performed. D/ / 02/07/2017 17:36:27 Arnel Mendez MD / annetta Interpreting Provider: Arnel Mendez MD Consult Discharge Plan - Plan Referrals: Kelly Hicks, MIRIAN [Primary Care Provider] -
--- NOTE | 2017-02-08 17:07 | Electrocardiograph Report ---
[place] [id number] Test Date: 2017-02-07 Pat Name: Christopher Rios Department: 104 Room: 3B54 Gender: M X Ray Developer: : 1960 Requested By: Arnulfo Torres Order Number: [id number] Reading MD: Doerne Jacobs Measurements Intervals [place] Rate: 93 P: 1 VA: 208 QRS: -17 QRSD: 98 T: 5 QT: 381 QTc: 432 Interpretive Statements SINUS RHYTHM WITH OCCASIONAL VENTRICULAR PREMATURE COMPLEXES INFERIOR MYOCARDIAL INFARCTION, PROBABLY OLD NONSPECIFIC ST-T ABNORMALITIES Electronically Signed On 02-08-2017 17:05:37 EDT by Dorene Jacobs
--- NOTE | 2017-02-08 19:18 | Venous Imaging Report ---
LE Venous Duplex Patient Name:Christopher Rios Order Number:[id number] Procedure Date:02/07/2017 Date:8Age:56 yrs Gender:Male Location:[facility] Room #: 3B54 Surgical Pathologist:Nadia Mcmillan RDCS Referring MD:Dariana Stafford CNP vice president payer:Kelly Hicks CNP Reading MD:Ethan Shipman MD Primary Indications:Lower extremity edema Secondary Indications: Impressions: Normal bilateral lower extremity deep and superficial venous exam. Findings Prior Study: No prior study available for comparison. Lower Extremity Venous Duplex Side Vein Compress Spontaneous Flow Augment Diameter (cm) Depth (cm) Right Distal Iliac Normal Yes Phasic Yes Right Common Femoral Normal Yes Phasic Yes Right Superficial Femoral Normal Yes Phasic Yes Right Popliteal Normal Yes Phasic Yes Right Posterior Tibial Normal Yes Phasic Yes Right Peroneal Normal Yes Phasic Yes Right Saphenofemoral [place] Normal Yes Phasic Yes Right Great Saphenous Normal Yes Phasic Yes Right Lesser Saphenous Normal Yes Phasic Yes Left Distal Iliac Normal Yes Phasic Yes Left Common Femoral Normal Yes Phasic Yes Left Superficial Femoral Normal Yes Phasic Yes Left Popliteal Normal Yes Phasic Yes Left Posterior Tibial Normal Yes Phasic Yes Left Peroneal Normal Yes Phasic Yes Left Saphenofemoral [place] Normal Yes Phasic Yes Left Great Saphenous Normal Yes Phasic Yes Left Lesser Saphenous Normal Yes Phasic Yes Updated by Ethan Shipman MD on 02/08/2017 7:13:38 PM electronically signed on 02/08/2017 7:13:59 PM with status of Final
[2017-02-09 05:35] LABS: Basophils # 0.1 K/mcL (0.0-0.2); Basophils % 0.6 %; Eosinophils # 0.2 K/mcL (0.0-0.6); Eosinophils % 2.1 %; Hemoglobin 13.5 g/dL (12.9-16.9); Immature Granulocytes % 0.4 % (0-4); Lymphocytes % 24.6 %; Mean Corpuscular HGB Conc 32.9 g/dL (31.6-35.5); Mean Corpuscular Volume 84.9 fL (83.0-100.0); Mean Platelet Volume 11.1 fL (9.4-12.4); Monocytes # 0.9 K/mcL (0.0-1.3); Monocytes % 10.9 %; Neutrophils # 5.1 K/mcL (1.6-8.9); Platelet Count 195 K/mcL (140-400); Red Blood Count 4.83 M/mcL (4.19-5.50); Red Cell Distribution Width 16.4 % (11.5-14.5); Segmented Neutrophils % 61.4 %
[2017-02-09 05:53] LABS: BUN/Creatinine Ratio 14 (6-26); Blood Urea Nitrogen 20 mg/dL (8-26); Calcium 9.7 mg/dL (8.6-10.8); Carbon Dioxide 31 mEq/L (19-29); Chloride 96 mEq/L (98-109); Glucose 105 mg/dL (70-99); Osmolality,Calculated 289 (280-300); Sodium 138 mEq/L (136-145); eGFR For African Americans > 60 (> 60); eGFR For Non-African Americans 52 (> 60)
[2017-02-09] MEDS: Famotidine 20 MG TABLET PO SCH ×2 (08:10→22:06)
[2017-02-09] MEDS: Furosemide 40 MG/4 ML VIAL IVP SCH ×3 (08:10→18:32)
[2017-02-09] MEDS: metOLazone 5 MG TABLET PO SCH (08:10)
[2017-02-09] MEDS: Aspirin 325 MG TABLET PO SCH (08:10)
[2017-02-09] MEDS: Insulin LISPRO 300 UNITS/3 ML VIAL SQ SCH ×4 (08:11→22:06)
--- NOTE | 2017-02-09 17:49 | Internal Med Progress Note ---
Date of Encounter: 02/09/17 Time of Encounter: 15:05 - Assessment and plan (1) Recurrent right pleural effusion Current Visit: Yes Status: Acute Assessment and plan: Pleural fluid cytology has resulted and shows reactive mesothelial and chronic inflammatory cells, culture is negative. Lungs are clear and dimished, pt in no distress. Sats 98% on room air. (2) CKD (chronic kidney disease) stage 3, GFR 30-59 ml/min Current Visit: Yes Status: Chronic Assessment and plan: Serum creatinine 1.39, GFR 52. This appears to be right about patient's baseline. Is worsened since yesterday, will decrease Lasix dose. Avoid nephrotoxins. (3) Congestive heart failure Current Visit: Yes Status: Acute Assessment and plan: Acute on chronic. Patient has large amount of lower extremity edema, bilateral extremities have improved, +3 pitting edema. Patient states his legs are better. We will continue to diurese. Patient had pleural effusion with thoracentesis to right side yesterday, also has a small left pleural effusion. His lungs are diminished and clear. Echocardiogram in August shows normal systolic function with LVEF of 55%, normal RV function, moderately dilated left atrium, moderate MR, mild MA, and rheumatic appearing mitral valve. Continue diuresis IV Lasix, decreased dose 40mg IV bid for renal function Continue telemetry 1.5 L fluid restriction, low sodium diet, daily weights, strict I and O. Qualifiers: Congestive heart failure type: unspecified congestive heart failure type Congestive heart failure chronicity: acute on chronic Qualified Code(s): I50.9 - Heart failure, unspecified (4) Dyspnea Current Visit: Yes Status: Acute Assessment and plan: Patient reports increasing dyspnea recently, most likely due to pleural effusion and ascites, CHF exacerbation. States that he is significantly better at this time after thoracentesis. He will stay for continued diuresis as he states that his legs are still edematous and painful. We will continue to monitor his condition and vitals including pulse ox. Oxygen as needed to maintain sats greater than 92%. Qualifiers: Dyspnea type: dyspnea on exertion Qualified Code(s): R06.09 - Other forms of dyspnea (5) Elevated troponin I level Current Visit: Yes Status: Acute Assessment and plan: Patient has mild, flat elevation of troponin in the setting of congestive heart failure, and stage 3 renal disease. He denies chest pain. Echo as stated above. Patient had C in August, with mild nonobstructive coronary artery disease in the LV is normal with an EF of 50-55%. Continue senior manufacturing engineer vital signs Treat chest pain with aspirin, nitroglycerin. (6) Essential hypertension Current Visit: Yes Status: Chronic Assessment and plan: Well-controlled. Continue home medications. (7) Diabetes Current Visit: Yes Status: Chronic Assessment and plan: Uncontrolled. A1c is 9.1. Continue sliding scale insulin, diabetic diet, Accu- Cheks before meals and at bedtime. Consider referral to diabetes education on discharge. Qualifiers: Diabetes mellitus type: type 2 Diabetes mellitus complication status: without complication Diabetes mellitus exterminator termite insulin use: without custodial use Qualified Code(s): E11.9 - Type 2 diabetes mellitus without complications (8) CAD (coronary artery disease) Current Visit: Yes Status: Acute Assessment and plan: Chronic. Continue aspirin, beta gloria. Pt denies chest pain. Qualifiers: Coronary Disease-Associated Artery/Lesion type: [place] artery [place] vs. transplanted heart: [place] heart Associated angina: without angina Qualified Code(s): I25.10 - Atherosclerotic heart disease of [place] coronary artery without angina pectoris (9) Ascites Current Visit: Yes Status: Acute Assessment and plan: Abd is softer and non-tender to palpation. He denies RUQ pain or tenderness with palpation. He is eating and drinking well. Qualifiers: Ascites type: other type Qualified Code(s): R18.8 - Other ascites (10) DVT prophylaxis Current Visit: Yes Status: Acute Assessment and plan: Patient is ambulatory. KELSEY hose for DVT prophylaxis as well as peripheral edema. (11) Scleral icterus Current Visit: Yes Status: Acute Assessment and plan: Bilirubin, transaminases, and liver enzymes WNL. Moderate amount of ascites on ultrasound yesterday. Abd is softer and less distended and pt notes improvement in abd girth and breathing. - Time Spent With Patient less than 15 minutes - Subjective Interval history: Patient was seen and assessed at 1505 AM. He is resting quietly in the bed and states that he feels better, but states that he needs another day here to diurese and states that his legs still hurt from edema. He denies shortness of breath with exertion. His abdomen is softer than yesterday, he states that it is better than yesterday and he has no pain. - Constitutional Vitals: Temp Pulse Resp BP Pulse Ox 97.4 F L 103 14 107/71 96 02/09/17 15:33 02/09/17 15:33 02/09/17 15:33 02/09/17 15:33 02/09/17 15:33 General appearance: Present: A&O X 3, morbidly obese, pleasant, no acute distress, answers questions appropriately - Head Head exam: Present: atraumatic, normal inspection, normocephalic - Eye Eye exam: Present: normal appearance, conjuntiva pink, sclera anicteric - Neck Neck exam general surgery: Present: supple, trachea midline. Absent: lymphadenopathy, tenderness - Respiratory Respiratory exam: Present: CTAB. Absent: accessory muscle use, rales, rhonchi, wheezes - Cardiovascular Cardiovascular exam: Present: RRR, +S1, +S2. Absent: diastolic murmur, gallop, rubs, systolic murmur - GI/Abdominal GI/Abdominal exam: Present: normal bowel sounds, soft. Absent: distended, hepatomegaly, tenderness - Extremities Exam Extremities exam: Present: pedal edema, warm, radial pulses palpable and symmetrical. Absent: calf tenderness, cyanotic, tenderness - Neurological Exam Neurological exam: Present: alert, oriented X3, no focal deficits. Absent: facial droop, speech deficit - Skin Skin exam: Present: dry, intact, normal color, warm. Absent: rash Internal Medicine: Result - Labs CBC & Chem 7: 02/09/17 05:13 02/09/17 05:13 Labs: Short CBC 02/09/17 Range/Units 05:13 WBC 8.3 (4.3-11.1) K/mcL Hgb 13.5 (12.9-16.9) g/dL Hct 41.0 (37.5-50.1) % Plt Count 195 (140-400) K/mcL Neutrophils # 5.1 (1.6-8.9) K/mcL BMP 02/09/17 05:13 Sodium 138 Potassium 4.0 Chloride 96 L Carbon Dioxide 31 H BUN 20 Creatinine 1.39 H Glucose 105 H Calcium 9.7 - ABG Interpretation ABG results: PT/INR, D-dimer PT 16.8 Seconds (9.4-12.1) H 02/07/17 14:45 Consult Discharge Plan - Plan Referrals: Kelly Hicks, MIRIAN [Primary Care Provider] -
[2017-02-10 03:46] LABS: Basophils % 0.5 %; Eosinophils # 0.2 K/mcL (0.0-0.6); Eosinophils % 2.1 %; Hematocrit 39.7 % (37.5-50.1); Hemoglobin 12.8 g/dL (12.9-16.9); Immature Granulocytes % 0.2 % (0-4); Lymphocytes % 22.3 %; Mean Corpuscular HGB Conc 32.2 g/dL (31.6-35.5); Mean Corpuscular Hemoglobin 27.5 pg (28.0-33.3); Mean Corpuscular Volume 85.4 fL (83.0-100.0); Mean Platelet Volume 11.5 fL (9.4-12.4); Monocytes % 11.6 %; Neutrophils # 5.5 K/mcL (1.6-8.9); Platelet Count 194 K/mcL (140-400); Red Blood Count 4.65 M/mcL (4.19-5.50); Red Cell Distribution Width 16.6 % (11.5-14.5); Segmented Neutrophils % 63.3 %
[2017-02-10 03:50] LABS: BUN/Creatinine Ratio 14 (6-26); Blood Urea Nitrogen 20 mg/dL (8-26); Calcium 9.8 mg/dL (8.6-10.8); Carbon Dioxide 34 mEq/L (19-29); Chloride 92 mEq/L (98-109); Glucose 90 mg/dL (70-99); Osmolality,Calculated 286 (280-300); Potassium 3.3 mEq/L (3.5-4.5); Sodium 137 mEq/L (136-145); eGFR For African Americans > 60 (> 60); eGFR For Non-African Americans 50 (> 60)
[2017-02-10 03:52] LABS: Albumin 3.1 g/dL (3.5-5.0); Albumin/Globulin Ratio 1.1 (1.1-2.2); Bilirubin,Indirect 0.8 mg/dL (0.0-1.2); Bilirubin,Total 1.8 mg/dL (0.2-1.2); Globulin 2.8 g/dL (2.4-3.5); Total Protein 5.9 g/dL (6.0-8.3)
[2017-02-10 08:15] VITALS: BP 116/73
[2017-02-10] MEDS: metOLazone 5 MG TABLET PO SCH (08:30)
[2017-02-10] MEDS: Aspirin 325 MG TABLET PO SCH (08:30)
[2017-02-10] MEDS: Furosemide 40 MG/4 ML VIAL IVP SCH (08:30)
[2017-02-10] MEDS: Insulin LISPRO 300 UNITS/3 ML VIAL SQ SCH (08:30)
[2017-02-10] MEDS: Famotidine 20 MG TABLET PO SCH (08:30)
--- NOTE | 2017-02-10 10:39 | Discharge Summary ---
Date of Encounter: 02/10/17 Time of Encounter: 08:35 - Discharge Diagnosis (1) Recurrent right pleural effusion Priority: Primary Status: Acute Comments: Pleural fluid cytology has resulted and shows reactive mesothelial and chronic inflammatory cells, culture is negative. Lungs are clear and dimished, pt in no distress. Sats 95% on room air. (2) CKD (chronic kidney disease) stage 3, GFR 30-59 ml/min Priority: Secondary Status: Chronic Comments: Sr Cr 1.46, GFR 50. This is close to pt's baseline. Lasix dose was decreased. Pt will continue dose at home today and tomorrow and resume home dose Sunday. Avoid other nephrotoxins and follow up with PCP for continued monitoring. (3) Congestive heart failure Priority: Secondary Status: Acute Comments: Pt's weight has gone from 107.5kg to 100.4 kg. He has diuresed almost 5 liters. Lungs are clear and diminished in post kurtz. Peripheral edema has improved, + 3 pitting edema to BLE and abd is less distended and soft. pt will continue increased dose of Lasix through the weekend and resume home dose on Sunday. ' Pt states that he feels better and breathing more easily. We discussed the importance of low sodiium diet, daily weights, and fluid restriction. Follow up with primary care. Qualifiers: Congestive heart failure type: unspecified congestive heart failure type Congestive heart failure chronicity: acute on chronic Qualified Code(s): I50.9 - Heart failure, unspecified (4) Dyspnea Priority: Secondary Status: Resolved Comments: Denies dyspnea. Qualifiers: Dyspnea type: dyspnea on exertion Qualified Code(s): R06.09 - Other forms of dyspnea (5) Elevated troponin I level Priority: Secondary Status: Acute Comments: Flat, elevated troponin in the setting of CHF and CKD. Denies chest pain. (6) Essential hypertension Priority: Primary Status: Chronic Comments: Continue home medications. (7) Diabetes Priority: Secondary Status: Chronic Comments: Uncontrolled with A1c 9.1. Continue home medication regimen and accuchecks. Consider referral to diabetes education as pt and did not seem to have great understanding of diabetic diet components. Qualifiers: Diabetes mellitus type: type 2 Diabetes mellitus complication status: without complication Diabetes mellitus care home insulin use: without rat exterminator use Qualified Code(s): E11.9 - Type 2 diabetes mellitus without complications (8) CAD (coronary artery disease) Priority: Secondary Status: Acute Comments: Chronic. Denies chest pain. Continue ASA, BB, and lovastatin. Qualifiers: Coronary Disease-Associated Artery/Lesion type: [place] artery [place] vs. transplanted heart: [place] heart Associated angina: without angina Qualified Code(s): I25.10 - Atherosclerotic heart disease of [place] coronary artery without angina pectoris (9) Ascites Priority: Secondary Status: Acute Comments: Pt with moderate pocket of ascites wtihin RUQ. Pt denies liver disease. Transaminases WNL, Albumin mildly elevated at 1.8. Pt was admitted for CHF, so may be exacerbated due to that. Pt with scleral icterus yesterday, but has improved today. No hepatomegaly or RUQ tenderness on physical exam. Pt admits to extensive prior history of ETOH intake, 5-6 beers nightly for about 32 years , states that he has cut back over the last 8 years or so. This is probably chronic, exacerbated by CHF. Follow up with PCP for evaluation. Qualifiers: Ascites type: other type Qualified Code(s): R18.8 - Other ascites (10) DVT prophylaxis Priority: Secondary Status: Acute Comments: Pt is ambulatory, KELSEY moody. (11) Scleral icterus Priority: Secondary Status: Resolved Comments: Resolved today. - Discharge Medications Home Medications: Glimepiride [Amaryl] 8 mg PO QAM 08/18/16 [History] Lisinopril [Zestril] 40 mg PO DAILY 08/18/16 [History] Lovastatin [Mevacor] 20 mg PO DAILY 08/18/16 [History] Metformin HCl [Glucophage] 1,000 mg PO BID 08/18/16 [History] Ranitidine HCl [Zantac] 150 mg PO BID 08/18/16 [History] SitaGLIPtin [Januvia] 100 mg PO DAILY 08/18/16 [History] Tramadol HCl [Ultram] 50 mg PO DAILY PRN 08/18/16 [History] Aspirin 325 mg PO DAILY 02/07/17 [History] Furosemide [Lasix] 40 mg PO DAILY 02/07/17 [History] Metoprolol [Lopressor] 25 mg PO BID 02/07/17 [History] Allergies/Adverse Reactions: 3 Allergy/AdvReac Type Severity Reaction Status Date / Time No Known Allergies Allergy Verified 08/18/16 09:07 Procedures/tests Complete & Pending: Procedures Performed prior 72 hours Category Date Time Status US abdomen limited [US] Routine Exams 02/09/17 18:22 Completed Date of admission: 02/08/17 11:54 Primary care physician: Kelly Hicks CNP Discharging clinician: Kelly Carlson Anticipated date of discharge: 02/10/17 - Patient Status Disposition: Home, Self-Care Condition: Good Functional capacity at discharge: independent ambulation Overall status at discharge: patient is progressing back to baseline - Discharge Instructions Follow Up With: Kelly Hicks CNP [Primary Care Provider] - Additional Instructions: Follow up with your PCP for evaluation of ascites and for hospital follow up visit. Return to the ER as needed for any other problems or concerns or if your symptoms return or worsen. Take double dose of Lasix today, return to normal dose tomorrow. Resume your other home medications and return to your normal activities as tolerated. - Diet and Activity Activity: increase activity as tolerated, resume usual activities as tolerated Diet: diabetic diet, low fat, low cholesterol, low salt diet, other (Fluid restriction, 1.5 liters) Hospital course: Mr. Rios is a 56 year old male with past medical history of unspecified CHF, recurrent right pleural effusion, hypertension, uncontrolled diabetes, coronary artery disease, and stage III CK D. he presented to the emergency department and was admitted for recurrent right pleural effusion. He had a thoracentesis and removed 1300 mL's of fluid. The cytology showed reactive mesothelial cells and chronic inflammatory cells. The culture was negative. He was in no distress since the procedure, he has maintained his sats greater than 92% on room air. Patient was also an acute exacerbation of CHF. BNP was elevated at 3514 on admission with flat and adynamic elevated troponin in the setting of CK D and CHF exacerbation. He denied chest pain throughout. He was given increased doses of Lasix IV twice a day and diuresed almost 5 L and has approximately 7 kg weight loss. Initially, patient had +4 pitting edema in bilateral lower extremities and was painful to walk. Patient now has +3 pitting edema and states that pain is improved. His abdomen was distended and firm, it is now less distended and soft. Patient denies prior history of liver disease, patient had mildly elevated bilirubin at 1.8. Transaminases were within normal limits. Limited ultrasound of the abdomen was ordered that showed a moderate-sized pocket of ascites in the right upper quadrant, there are trace ascites seen within the remainder of the abdomen. This could be due to CHF exacerbation, patient also reports lengthy history of daily alcohol use from the age of 16 until the age of 48. He says that he drinks 5-6 beers daily. There is no hepatomegaly noted, patient denies pain, nausea, vomiting, scleral icterus has resolved from yesterday. Patient will need to follow up for continued monitoring or for resolution. Patient with stage III CK D, serum creatinine and GFR remain at baseline. Patient is on lisinopril, as well as increased dose of Lasix for the next 2 days. Patient will need to follow-up with primary care for this as well. Vitals are stable, patient's condition has improved a states he feels much better, labs are within normal limits and steady. Patient is ready for discharge. - Time Spent with Patient Total time spent providing and/or coordinating discharge services: Less than 30 minutes - Constitutional Vitals: Temp Pulse Resp BP Pulse Ox 97.7 F 84 20 116/73 94 02/10/17 08:07 02/10/17 08:07 02/10/17 08:07 02/10/17 08:07 02/10/17 08:30 General appearance: Present: A&O X 3, morbidly obese, pleasant, no acute distress, answers questions appropriately - Head Head exam: Present: atraumatic, normal inspection, normocephalic - Eye Eye exam: Present: normal appearance, conjuntiva pink, sclera anicteric - ENT ENT exam: Present: mucous membranes moist, normal exam, normal external ear exam - Neck Neck exam general surgery: Present: normal inspection. Absent: lymphadenopathy , tenderness - Respiratory Respiratory exam: Present: decreased breath sounds, CTAB. Absent: chest wall tenderness, respiratory distress, rhonchi, wheezes - Cardiovascular Cardiovascular exam: Present: RRR, +S1, +S2. Absent: diastolic murmur, systolic murmur - GI/Abdominal GI/Abdominal exam: Present: distended, normal bowel sounds, soft. Absent: hepatomegaly, tenderness - Extremities Exam Extremities exam: Present: normal capillary refill, pedal edema, warm, radial pulses palpable and symmetrical. Absent: tenderness - Neurological Exam Neurological exam: Present: alert, oriented X3, no focal deficits. Absent: facial droop, speech deficit - Skin Skin exam: Present: dry, intact, normal color, warm. Absent: rash, urticaria
--- NOTE | 2017-02-14 11:17 | Electrocardiograph Report ---
[place] [id number] Test Date: 2017-02-10 Pat Name: Christopher Rios Department: 113 Room: 3B Gender: M Transition Of Care Specialist: : 1960 Requested By: Kelly Carlson Order Number: [id number] Reading MD: Pina Baker Measurements Intervals [place] Rate: 92 P: 4 WI: 220 QRS: -10 QRSD: 104 T: 1 QT: 388 QTc: 438 Interpretive Statements SINUS RHYTHM WITH FIRST DEGREE AV BLOCK WITH OCCASIONAL VENTRICULAR PREMATURE COMPLEXES INDETERMINATE AXIS Electronically Signed On 02-14-2017 11:15:43 EDT by Pina Baker
== END 2017-02-10 11:50 | disposition home or self-care (01) | DRG 291 ==
LOC: EMEROO 11:04 → 3BNU 11:04
PROVIDERS: ADMIT Internal Medicine; ATTEND Registered Nurse

== ENCOUNTER 2017-03-16 11:48 | Inpatient (IN) ==
[2017-03-16 12:51] LABS: Basophils % 0.3 %; Eosinophils % 0.2 %; Hematocrit 43.7 % (37.5-50.1); Hemoglobin 13.6 g/dL (12.9-16.9); Immature Granulocytes % 0.3 % (0-4); Lymphocytes # 1.7 K/mcL (0.6-4.6); Lymphocytes % 13.6 %; Mean Corpuscular HGB Conc 31.1 g/dL (31.6-35.5); Mean Corpuscular Hemoglobin 27.1 pg (28.0-33.3); Mean Corpuscular Volume 87.1 fL (83.0-100.0); Monocytes # 1.3 K/mcL (0.0-1.3); Neutrophils # 9.5 K/mcL (1.6-8.9); Platelet Count 255 K/mcL (140-400); Red Blood Count 5.02 M/mcL (4.19-5.50); Red Cell Distribution Width 16.7 % (11.5-14.5); Segmented Neutrophils % 75.6 %
[2017-03-16 13:03] LABS: BUN/Creatinine Ratio 13 (6-26); Blood Urea Nitrogen 15 mg/dL (8-26); Calcium 9.8 mg/dL (8.6-10.8); Carbon Dioxide 26 mEq/L (19-29); Chloride 98 mEq/L (98-109); Glucose 164 mg/dL (70-99); Osmolality,Calculated 286 (280-300); Potassium 3.8 mEq/L (3.5-4.5); Sodium 136 mEq/L (136-145); eGFR For African Americans > 60 (> 60); eGFR For Non-African Americans > 60 (> 60)
--- NOTE | 2017-03-16 14:01 | Emergency Department Note ---
Disposition Clinical Impression: Acute on chronic diastolic CHF (congestive heart failure) Congestive heart failure Qualifiers: Congestive heart failure type: unspecified congestive heart failure type Congestive heart failure chronicity: acute on chronic Qualified Code(s): I50.9 - Heart failure, unspecified Disposition: Admitted As Inpatient Condition: Serious Referrals: Kelly Hicks CNP [Primary Care Provider] - Time of Disposition: 14:53 General Adult HPI - General Chief complaint: ED General Medical Stated complaint: Abd/leg swelling/sob Time Seen by Provider: 03/16/17 13:44 Source: patient Limitations: no limitations Nursing Notes Reviewed: Yes Vital Signs Reviewed: Yes - History of Present Illness HPI Narrative: He is a 56-year-old male with history of CHF, CKD as well as recurrent pleural effusions right lower lobe presents today with increased leg pain secondary to the bilateral lower extremity edema and increased abdominal girth secondary to fluid retention Times past 4 days. Patient's at bedside states that patient should have calmed 2 days ago but he has been resistant to come back to the hospital. Patient sees Dr. Baker of cardiology. Patient denies any chest pain today. Patient does have a cough that is wet sounding and patient's is concerned about the cough that is new-onset. Patient is smoker, has diabetes, hypertension and a history of ascites Pain Scale: 0 - Related Data Home Medications Medication Instructions Recorded Confirmed Glimepiride [Amaryl] 8 mg PO QAM 08/18/16 02/07/17 Lisinopril [Zestril] 40 mg PO DAILY 08/18/16 02/07/17 Lovastatin [Mevacor] 20 mg PO DAILY 08/18/16 02/07/17 Metformin HCl [Glucophage] 1,000 mg PO BID 08/18/16 02/07/17 Ranitidine HCl [Zantac] 150 mg PO BID 08/18/16 02/07/17 SitaGLIPtin [Januvia] 100 mg PO DAILY 08/18/16 02/07/17 Tramadol HCl [Ultram] 50 mg PO DAILY PRN 08/18/16 02/07/17 Aspirin 325 mg PO DAILY 02/07/17 02/07/17 Furosemide [Lasix] 40 mg PO DAILY 02/07/17 02/07/17 Metoprolol [Lopressor] 25 mg PO BID 02/07/17 02/07/17 Allergies Allergy/AdvReac Type Severity Reaction Status Date / Time No Known Allergies Allergy Verified 08/18/16 09:07 All systems ED: reviewed and negative except as stated. Review of Systems: As Per HPI Constitutional: Reports: chills. Denies: fever, weakness ENT ED: Reports: congestion Cardiovascular: Reports: dyspnea on exertion. Denies: chest pain, palpitations Respiratory: Reports: cough. Denies: dyspnea, wheezes Gastrointestinal: Denies: abdominal pain, nausea, vomiting, diarrhea Genitourinary: Denies: urgency, dysuria, frequency Musculoskeletal: Denies: back pain, neck pain Integumentary: Denies: rash Neurological: Denies: headache Endocrine: Reports: fatigue Past Medical History - Past Medical History Attestation: Yes The following information was validated with the patient. Source: patient Medical history: Reports: CHF, diabetes, hyperlipidemia, hypertension Surgical history: Reports: non-contributory Psychiatric history: Reports: no psych history - Social History Smoking Status: Never smoker Smokeless Tobacco Status: No Alcohol use: Reports: none Drug use: Reports: none Physical Exam Vital Signs Temperature 98 F 03/16/17 12:02 Pulse Rate 111 03/16/17 12:02 Respiratory Rate 18 03/16/17 12:02 Blood Pressure 111/71 03/16/17 12:02 O2 Sat by Pulse Oximetry 100 03/16/17 12:02 Temperature 98 F 03/16/17 12:02 Pulse Rate 111 03/16/17 12:02 Respiratory Rate 18 03/16/17 12:02 Blood Pressure 111/71 03/16/17 12:02 O2 Sat by Pulse Oximetry 100 03/16/17 12:02 Oxygen Delivery Oxygen Delivery Room Air Patient is a 56-year-old who is alert and oriented 3 and in no acute distress. Patient is afebrile but is tachycardiac. EKG shows a sinus tachycardia at a rate of 129 bpm . Patient is normotensive. Patient is placed in a gown and removed patient's jeans which showed bilaterally symmetric edematous lower extremities. Per she states the patient has very skinny legs normally. Lower extremities are tense but nonpitting to palpation. Legs are tender to palpation as well. No erythema or signs of infection Auscultation patient's lung sounds reflect decreased lung sounds in the right lower lobe area when compared to the right. Patient has a regular rhythm but fast rate on auscultation of heart sounds with no murmurs rubs or gallops. Chest wall is nontender to palpation. Back nontender to palpation. No CVA tenderness. Abdomen soft but rounded. Abdomen and has a fluid wave. Patient has equal radial pulses and equal dorsal pedal pulses - General Limitations: no limitations General appearance: alert Course - Consultations Consultation #1: Dr. Castaneda of Cardiology was consulted about the patient. He agrees admission is warranted and will see the patient before. He agrees to diuresis for the patient Time: 14:28 Consultation #2: Dr. Albright hospitalist has accepted the patient for admission Time: 14:53 Vital Signs Temperature 98 F 03/16/17 12:02 Pulse Rate 111 03/16/17 12:02 Respiratory Rate 18 03/16/17 12:02 Blood Pressure 111/71 03/16/17 12:02 O2 Sat by Pulse Oximetry 100 03/16/17 12:02 Temperature 98 F 03/16/17 12:02 Pulse Rate 111 03/16/17 12:02 Respiratory Rate 18 03/16/17 12:02 Blood Pressure 111/71 03/16/17 12:02 O2 Sat by Pulse Oximetry 100 03/16/17 12:02 Oxygen Delivery Oxygen Delivery Room Air Medical Decision Making - [facility] Narrative Medical decision making narrative: Patient appears to be in CHF exacerbation today he has a elevated troponin. He also has a wet sounding cough and an elevated lactic acid is concerning for possible pneumonia. Chest x-ray shows improving aeration but atelectasis versus possible pneumonia and right lower lung area. Plan is to start patient on Lasix for diuresis, and IV antibiotics to cover for possible pneumonia, recheck lactic acid in 4 hours. Patient has an elevation of white count 12.6, elevation of his BNP 3995, an elevated troponin 0.06. Patient be admitted for CHF exacerbation. Patient is accepted for admission by Dr. Albright the hospitalist for CHF exacerbation also discussed patient's history of ascites with a negative elevation of LFTs. - Lab Data Lab results reviewed: Yes I reviewed the patient's lab results. Lab results narrative: Short CBC 03/16/17 Range/Units 12:43 WBC 12.6 H (4.3-11.1) K/mcL Hgb 13.6 (12.9-16.9) g/dL Hct 43.7 (37.5-50.1) % Plt Count 255 (140-400) K/mcL Neutrophils # 9.5 H (1.6-8.9) K/mcL BMP 03/16/17 Range/Units 12:43 Sodium 136 (136-145) mEq/L Potassium 3.8 (3.5-4.5) mEq/L Chloride 98 (98-109) mEq/L Carbon Dioxide 26 (19-29) mEq/L BUN 15 (8-26) mg/dL Creatinine 1.15 (0.72-1.25) mg/dL Glucose 164 H (70-99) mg/dL Calcium 9.8 (8.6-10.8) mg/dL Cardiac Enzymes 03/16/17 Range/Units 12:43 Troponin I 0.06 H* (0-0.03) ng/mL Result diagrams: 03/16/17 12:43 03/16/17 12:43 Lab Results 03/16/17 03/16/17 03/16/17 Range/Units 12:43 12:43 12:43 WBC 12.6 H (4.3-11.1) K/mcL RBC 5.02 (4.19-5.50) M/mcL Hgb 13.6 (12.9-16.9) g/dL Hct 43.7 (37.5-50.1) % MCV 87.1 (83.0-100.0) fL MCH 27.1 L (28.0-33.3) pg MCHC 31.1 L (31.6-35.5) g/dL RDW 16.7 H (11.5-14.5) % Plt Count 255 (140-400) K/mcL MPV 11.0 (9.4-12.4) fL Immature Gran % 0.3 (0-4) % Seg Neutrophils % 75.6 % Lymphocytes % 13.6 % Monocytes % 10.0 % Eosinophils % 0.2 % Basophils % 0.3 % Neutrophils # 9.5 H (1.6-8.9) K/mcL Lymphocytes # 1.7 (0.6-4.6) K/mcL Monocytes # 1.3 (0.0-1.3) K/mcL Eosinophils # 0.0 (0.0-0.6) K/mcL Basophils # 0.0 (0.0-0.2) K/mcL Sodium 136 (136-145) mEq/L Potassium 3.8 (3.5-4.5) mEq/L Chloride 98 (98-109) mEq/L Carbon Dioxide 26 (19-29) mEq/L BUN 15 (8-26) mg/dL Creatinine 1.15 (0.72-1.25) mg/dL Est GFR ( Amer) > 60 (> 60) Est GFR (Non-Af Amer) > 60 (> 60) BUN/Creatinine Ratio 13 (6-26) Glucose 164 H (70-99) mg/dL Calculated Osmolality 286 (280-300) Lactic Acid 2.4 H (0.5-2.2) mmol/L Calcium 9.8 (8.6-10.8) mg/dL Troponin I (0-0.03) ng/mL B-Natriuretic Peptide (0-100) pg/mL 03/16/17 03/16/17 Range/Units 12:43 12:43 WBC (4.3-11.1) K/mcL RBC (4.19-5.50) M/mcL Hgb (12.9-16.9) g/dL Hct (37.5-50.1) % MCV (83.0-100.0) fL MCH (28.0-33.3) pg MCHC (31.6-35.5) g/dL RDW (11.5-14.5) % Plt Count (140-400) K/mcL MPV (9.4-12.4) fL Immature Gran % (0-4) % Seg Neutrophils % % Lymphocytes % % Monocytes % % Eosinophils % % Basophils % % Neutrophils # (1.6-8.9) K/mcL Lymphocytes # (0.6-4.6) K/mcL Monocytes # (0.0-1.3) K/mcL Eosinophils # (0.0-0.6) K/mcL Basophils # (0.0-0.2) K/mcL Sodium (136-145) mEq/L Potassium (3.5-4.5) mEq/L Chloride (98-109) mEq/L Carbon Dioxide (19-29) mEq/L BUN (8-26) mg/dL Creatinine (0.72-1.25) mg/dL Est GFR ( Amer) (> 60) Est GFR (Non-Af Amer) (> 60) BUN/Creatinine Ratio (6-26) Glucose (70-99) mg/dL Calculated Osmolality (280-300) Lactic Acid (0.5-2.2) mmol/L Calcium (8.6-10.8) mg/dL Troponin I 0.06 H* (0-0.03) ng/mL B-Natriuretic Peptide 3996 H (0-100) pg/mL - Radiology Data Radiology results reviewed: Yes I reviewed the patient's radiology results. Chest X-Ray 03/16/17 12:08 IMPRESSION: There is a persistent small right pleural effusion, with some improved aeration at the right lung base with mild persistent basilar airspace disease which could represent atelectasis or pneumonia. No new infiltrate. D/ / Godfrey Simmons MD / Godfrey Simmons MD Interpreting Provider: Godfrey Simmons MD - EKG Data EKG #1 EKG attestation: Yes I reviewed and interpreted this EKG. EKG results narrative: EKG taken 03/16/2017 at 1320 hrs. shows sinus tachycardia at a rate of 129 beats minute with no acute ST elevations or depressions in any leads, no QRS widening or QT prolongation. Compared with previous EKG taken 02/10/2017 shows a sinus rhythm first degree AV block and a rate of 92 bpm with occasional PVCs and no acute ST elevations or depressions noted any leads. Both EKG showed low voltage
[2017-03-16] MEDS ORDERED: Piperacillin/Tazobactam 3.375 GM in D5% in Water (Mini-Bag+) 100 ML IVPB ONE (14:04)
[2017-03-16] MEDS ORDERED: Levofloxacin 750 MG/150 ML 750 MG/150 ML BAG IVPB ONE (14:04)
[2017-03-16] MEDS ORDERED: Vancomycin 1,500 MG in D5% in Water 250 ML IVPB ONE ×2 (14:04→14:15)
[2017-03-16] MEDS ORDERED: Furosemide 40 MG/4 ML VIAL IVP ONE (14:11)
[2017-03-16 14:24] LABS: INR 1.7; Prothrombin Time 18.4 Seconds (9.4-12.1)
[2017-03-16 14:42] LABS: Alanine Aminotransferase 12 Units/L (0-55); Albumin 3.5 g/dL (3.5-5.0); Albumin/Globulin Ratio 0.9 (1.1-2.2); Alkaline Phosphatase 147 Units/L (38-126); Aspartate Amino Transferase 24 Units/L (5-34); Bilirubin,Direct 2.3 mg/dL (0.0-0.5); Bilirubin,Indirect 1.9 mg/dL (0.0-1.2); Bilirubin,Total 4.2 mg/dL (0.2-1.2); Globulin 3.9 g/dL (2.4-3.5); Lipase 70 Units/L (8-78); Magnesium 1.3 mg/dL (1.6-2.6); Phosphorous 2.7 mg/dL (2.3-4.7); Total Protein 7.4 g/dL (6.0-8.3)
[2017-03-16 14:53] LABS: Bilirubin,Urine Moderate (Negative); Blood,Urine Negative (Negative); Color,Urine Orange (Yellow); Glucose,Urine (UA) Normal (Normal); Ketones,Urine Trace mg/dL (Negative); Leukocyte Esterase,Urine Small (Negative); Nitrite,Urine Positive (Negative); Protein,Urine 100 mg/dL (Neg-Trace); Specific Gravity,Urine 1.025 (1.010-1.025); Urobilinogen,Urine Normal (Normal)
[2017-03-16 14:55] LABS: Clarity,Urine Clear (Clear)
[2017-03-16 14:59] LABS: Bacteria,Urine None Seen per hpf (None-Few); Hyaline Casts,Urine Moderate per lpf (None-Few); Squamous Epithelial Cell,Urine Few per lpf (None-Few)
--- NOTE | 2017-03-16 15:05 | Emergency Department Note ---
START Narrative - START START: I examined this patient and my medical decision-making was reviewed with the [employer]/PA/Advanced Practice Nurse/Resident Physician. I agree with the documented findings, disposition and treatment plan as described except to the extent set forth below. ED attending: Patient's emergency medicine resident Dr. Gandhi. Please see copy of this note for H&P evaluation and management and ED disposition. We both had independent [id number] time in contact with this patient. Briefly: A 48-year-old male history of CHF cardiac disease presents with increasing shortness of breath and cough fatigue increased bilateral leg swelling. ED workup shows he has acute CHF and new pneumonic infiltrate possible sepsis with lactic acidosis. 4-5 minutes critical care services to this patient IV fluids antibiotics offered patient except for admission by hospitalist. [facility].
[2017-03-16 15:13] LABS: Sperm,Urine Present
[2017-03-16] MEDS ORDERED: traMADol 50 MG TABLET PO PRN (15:25)
[2017-03-16] MEDS ORDERED: *HR* Digoxin 0.5 MG/2 ML AMPUL IVP ONE (15:26)
[2017-03-16] MEDS ORDERED: *HR* Digoxin 0.125 MG TABLET PO SCH (15:30)
--- NOTE | 2017-03-16 15:39 | Internal Med History&Physical ---
Date of Encounter: 03/16/17 Time of Encounter: 15:39 Assessment and Plan (1) Congestive heart failure Current visit: No Status: Acute Acute congestive heart failure due to nonischemic cardiomyopathy. We will start the patient on lasic 80 mg IV twice daily. Strict intake and output. We also add spironolactone. Qualifiers: Congestive heart failure type: unspecified congestive heart failure type Congestive heart failure chronicity: acute on chronic Qualified Code(s): I50.9 - Heart failure, unspecified (2) Diabetes Current visit: No Status: Chronic Sliding scale insulin. 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 I will give the patient digoxin .25 mg IV once and start the patient on digoxin .125 mg every other day. Continue beta blockers. Cardiology evaluation to decide on rhythm. His INR is 1.7 so will not start an anticoagulant medications. Internal Medicine - H&P: HPI Chief complaint: sob History of present illness: Mr. Rios is a 56 year old male with a history of nonischemic dilated cardiomyopathy presents to the emergency room today with any complaining of shortness of breath. Over the past few days patient has been noticing progressive shortness of breath to the point where he is unable to breathe rest associated with orthopnea and bilateral lower extremity swelling. Patient has gained 5 pounds over the past week. Patient mentioned that his urine output has been minimal with the current Lasix dose of 40 mg daily. He has a dry cough mainly at nighttime when he lays on his back. He denies any fevers or chills. Past Med Surg Social Fam HX - Past Medical History Medical history: CHF, diabetes, hyperlipidemia, hypertension Psychiatric history: no psych history - Past Surgical History Surgical History: non-contributory - Social History Smoking Status: Never smoker Smokeless Tobacco Status: No Alcohol use: none Drug use: none - Family History Mother Hx Family Cardiac Disorders: Yes Father Living Status: Hx Family Cancer: Yes (Lung) Internal Medicine - H&P: Meds Glimepiride [Amaryl] 8 mg PO QAM 08/18/16 [History] Lisinopril [Zestril] 40 mg PO DAILY 08/18/16 [History] Lovastatin [Mevacor] 20 mg PO DAILY 08/18/16 [History] Metformin HCl [Glucophage] 1,000 mg PO BID 08/18/16 [History] Ranitidine HCl [Zantac] 150 mg PO BID 08/18/16 [History] SitaGLIPtin [Januvia] 100 mg PO DAILY 08/18/16 [History] Tramadol HCl [Ultram] 50 mg PO DAILY PRN 08/18/16 [History] Aspirin 325 mg PO DAILY 02/07/17 [History] Furosemide [Lasix] 40 mg PO DAILY 02/07/17 [History] Metoprolol [Lopressor] 25 mg PO BID 02/07/17 [History] 3 Allergy/AdvReac Type Severity Reaction Status Date / Time No Known Allergies Allergy Verified 08/18/16 09:07 All Systems PM: A 10-system review of systems was performed and is negative for pertinent findings except as documented above in the HPI. Review of systems: 10 point review systems is negative except for HPI - Constitutional Vitals: Temp Pulse Resp BP Pulse Ox 98 F 128 24 123/98 99 03/16/17 12:02 03/16/17 14:05 03/16/17 15:29 03/16/17 15:29 03/16/17 14:30 Exam: Gen.: patient is alert oriented times 3 cardiac: tachycardic, S3 gallop, +ve JVD chest: bilateral crackles. Decreased air entry in right base abdomen soft nontender nondistended normal bowel sounds lower extremity 2+ swelling, +ve sacral edema. Neuro: no new focal deficits Internal Med - H&P Results - Labs CBC & Chem 7: 03/16/17 12:43 03/16/17 12:43
[2017-03-16] MEDS: Insulin LISPRO 300 UNITS/3 ML VIAL SQ SCH ×2 (16:54→20:58)
[2017-03-16] MEDS: Piperacillin/Tazobactam 3.375 GM in D5% in Water (Mini-Bag+) 100 ML IVPB SCH (20:56)
[2017-03-16] MEDS: Famotidine 20 MG TABLET PO SCH (20:59)
[2017-03-16] MEDS: Furosemide 40 MG/4 ML VIAL IVP SCH (21:02)
[2017-03-17] MEDS: Piperacillin/Tazobactam 3.375 GM in D5% in Water (Mini-Bag+) 100 ML IVPB SCH ×2 (03:53→11:28)
[2017-03-17 05:45] LABS: Basophils % 0.4 %; Eosinophils % 0.3 %; Hematocrit 34.3 % (37.5-50.1); Immature Granulocytes % 0.3 % (0-4); Mean Corpuscular HGB Conc 32.7 g/dL (31.6-35.5); Mean Corpuscular Hemoglobin 27.9 pg (28.0-33.3); Mean Corpuscular Volume 85.3 fL (83.0-100.0); Mean Platelet Volume 10.7 fL (9.4-12.4); Monocytes # 1.1 K/mcL (0.0-1.3); Monocytes % 11.3 %; Neutrophils # 7.8 K/mcL (1.6-8.9); Platelet Count 203 K/mcL (140-400); Red Blood Count 4.02 M/mcL (4.19-5.50); Red Cell Distribution Width 15.9 % (11.5-14.5); Segmented Neutrophils % 77.7 %
[2017-03-17 05:46] LABS: Hemoglobin 11.2 g/dL (12.9-16.9)
[2017-03-17 05:52] LABS: BUN/Creatinine Ratio 15 (6-26); Blood Urea Nitrogen 15 mg/dL (8-26); Calcium 8.6 mg/dL (8.6-10.8); Carbon Dioxide 29 mEq/L (19-29); Chloride 99 mEq/L (98-109); Creatine Kinase 52 Units/L (30-200); Glucose 90 mg/dL (70-99); Magnesium 1.1 mg/dL (1.6-2.6); Osmolality,Calculated 282 (280-300); Potassium 3.4 mEq/L (3.5-4.5); eGFR For African Americans > 60 (> 60); eGFR For Non-African Americans > 60 (> 60)
[2017-03-17 05:53] LABS: Sodium 136 mEq/L (136-145)
[2017-03-17] MEDS: Famotidine 20 MG TABLET PO SCH ×2 (08:07→21:29)
[2017-03-17] MEDS: Magnesium Sulfate 2 GM in D5% in Water 100 ML IVPB SCH ×2 (08:44→09:56)
[2017-03-17] MEDS: Furosemide 40 MG/4 ML VIAL IVP SCH (08:45)
[2017-03-17] MEDS: Insulin LISPRO 300 UNITS/3 ML VIAL SQ SCH ×5 (08:58→21:35)
[2017-03-17] MEDS ORDERED: Aspirin 325 MG TABLET PO SCH (09:00)
--- NOTE | 2017-03-17 10:45 | Cardiology Consult Note ---
Date of Encounter: 03/17/17 Time of Encounter: 10:45 Assessment and Plan (1) Congestive heart failure Current Visit: Yes Status: Acute Per Cardiology: BNP noted to be 3996-- comparable to previous recent test results. Has not follow-up with cardiology since August 2016. Appears recently nonresponsive to by mouth Lasix at home. On IV Lasix 80 mg twice a day and net -3036ml. He reports baseline weight about 200 pounds-- weighed 204 08/2016, weight initially 217, now 204 according to records. Discussed and reviewed with Dr. Castaneda, will switch to IV Bumex 1mg BID. Mg and K+ being replaced. Echo from August 2016 showed preserved EF 55%, moderate MR-- rheumatic appearing mitral valve. Will repeat echo. Strict I&O, daily weights, fluid resection, will apply KELSEY hose. CXR: IMPRESSION: There is a persistent small right pleural effusion, with some improved aeration at the right lung base with mild persistent basilar airspace disease which could represent atelectasis or pneumonia. No new infiltrate. Qualifiers: Congestive heart failure type: unspecified congestive heart failure type Congestive heart failure chronicity: acute on chronic Qualified Code(s): I50.9 - Heart failure, unspecified (2) Atrial tachycardia Current Visit: Yes Status: Acute Per Cardiology: Concerns for atrial tach per primary. Currently SR with PVCs, NSVT longest 4 beats noted. No significant atrial arrhythmias noted. ST 100's on ECG. Will DC Digoxin-- discussed with Dr. Castaneda. On BB. (3) CAD (coronary artery disease) Current Visit: No Status: Chronic Per Cardiology: Had [facility] 08/2016 d/t NSVT on Holter. Mild nonobstrutive CAD. On asa, statin. Qualifiers: Coronary Disease-Associated Artery/Lesion type: [place] artery [place] vs. transplanted heart: [place] heart Associated angina: without angina Qualified Code(s): I25.10 - Atherosclerotic heart disease of [place] coronary artery without angina pectoris (4) Elevated troponin I level Current Visit: No Status: Acute Per Cardiology: Denies CP. Had mild troponins of 0.06 3-- suspect demand ischemia in setting of CHF. No cardiac rehabilitation warranted. Had mild troponin elevations January 2017 as well. (5) Elevated INR Current Visit: Yes Status: Acute Per Cardiology: Elevated T bili. INR 1.7, not on AC. Further management per primary service. 03/27 Abd/Pelvic CT: IMPRESSION: Moderate abdominal and pelvic ascites. Cholelithiasis. No cholecystitis. Bilateral pleural effusions, right greater than left. Tiny noncalcified pulmonary nodule is seen on left Discussion w patient/family: The assessment and plan as outlined above was discussed with the patient and/or family members who expressed understanding and agreement. All questions were answered. Thank you for involving us in the care of your patient. Please call with any questions. History of Present Illness Consult date: 03/17/17 Consult reason: CHF, Tachycardia History of present illness: Mr. Rios is a 56 year old male with a relevant past medical history of hypertension, hyperlipidemia, diabetes mellitus type 2, nonobstructive CAD, history PVCs on Holter. Cardiology consult for CHF, concerns of tachycardia, and elevated troponins. Patient and report multiple recent hospitalizations for increased swelling to lower extremities, abdominal distention, increasing dyspnea on exertion, and fatigue. They report recent discharge a few weeks ago and progressive weight gain of about 10-12 pounds with recurrence of abdominal distention and edema to lower extremities. He reports was discharged home on Lasix 40 mg by mouth daily , however limited response. PCP recently increase it to 80 mg by mouth daily again with limited response. He denies any chest pain or palpitations. He denies any active bleeding or blood loss. Reports has been experiencing a dry persistent cough now for the past few months. Does report some recent chills, however denies any fever. Reports pending evaluation of his liver with Dr. Cornejo next week and had "recent MRI" completed. Past Med Surg Social Fam HX - Past Medical History Attestation: Yes The following information was validated with the patient. Source: patient, old records reviewed, obtained from family Medical history: CHF, diabetes, hyperlipidemia, hypertension Psychiatric history: no psych history - Past Surgical History Surgical History: non-contributory - Social History Smoking Status: Never smoker Smokeless Tobacco Status: No Alcohol use: none Drug use: none - Family History Mother History Unknown: Yes Hx Family Cardiac Disorders: Yes Father History Unknown: Yes Living Status: Hx Family Cancer: Yes (Lung) Medications and Allergies Glimepiride [Amaryl] 8 mg PO QAM 08/18/16 [History] Lisinopril [Zestril] 40 mg PO DAILY 08/18/16 [History] Lovastatin [Mevacor] 20 mg PO DAILY 08/18/16 [History] Metformin HCl [Glucophage] 1,000 mg PO BID 08/18/16 [History] Ranitidine HCl [Zantac] 150 mg PO BID 08/18/16 [History] SitaGLIPtin [Januvia] 100 mg PO DAILY 08/18/16 [History] Tramadol HCl [Ultram] 50 mg PO DAILY PRN 08/18/16 [History] Aspirin 325 mg PO DAILY 02/07/17 [History] Furosemide [Lasix] 40 mg PO DAILY 02/07/17 [History] Metoprolol [Lopressor] 25 mg PO BID 02/07/17 [History] 3 Allergy/AdvReac Type Severity Reaction Status Date / Time No Known Allergies Allergy Verified 08/18/16 09:07 All Systems Review: A 10-system review of systems was performed and is negative for pertinent findings except as documented above in the HPI. - Constitutional Constitutional: chills, fatigue, weight gain - Cardiovascular Cardiovascular: as per HPI, dyspnea on exertion, leg edema - Respiratory Respiratory: cough - Gastrointestinal Gastrointestinal: other (Abdominal distention) Physical Examination Vital Signs, Last 4 Hours Temp Pulse Resp BP Pulse Ox 03/17/17 08:05 98.2 F 94 18 120/83 97 General: Conversant, No Apparent Distress HEENT: Atraumatic, Normocephaly, Mucus Membranes Moist Neck: No JVD, Normal carotid pulses Cardiac: Reg Rate and Rhythm, Normal S1 and S2, No Murmur Lungs: Normal Breath Sounds, No Wheeze, Rales, Rhonchi, Other (decreased to R base) Neuro: Alert and responsive, No focal deficits noted Abdomen: Soft, Non-Tender Skin: No rashes noted on visualized skin Extremities: Other (+2-3 pitting edema up to mid thighs) Results 03/17/17 05:30 03/17/17 05:30 Lab Results Laboratory Tests 03/16/17 03/16/17 03/16/17 12:43 12:43 12:43 INR Potassium Magnesium 1.3 L Total Bilirubin 4.2 H AST 24 ALT 12 Troponin I 0.06 H* B-Natriuretic Peptide 3996 H 03/16/17 03/16/17 03/17/17 12:43 20:38 05:30 INR 1.7 Potassium 3.4 L Magnesium 1.1 L Total Bilirubin AST ALT Troponin I 0.06 H* B-Natriuretic Peptide 03/17/17 05:30 INR Potassium Magnesium Total Bilirubin AST ALT Troponin I 0.06 H* B-Natriuretic Peptide ITS Impressions Chest X-Ray 03/16/17 12:08 IMPRESSION: There is a persistent small right pleural effusion, with some improved aeration at the right lung base with mild persistent basilar airspace disease which could represent atelectasis or pneumonia. No new infiltrate. D/ / Godfrey Simmons MD / Godfrey Simmons MD Interpreting Provider: Godfrey Simmons MD Intake & Output 03/14/17 03/15/17 03/16/17 03/17/17 23:59 23:59 23:59 23:59 Intake Total 150 / 150 564 / 564 Output Total 950 / 950 2800 / 2800 Balance -800 / -800 -2236 / -2236 Weight 93.242 kg Active Medications Aspirin (Aspirin) 325 mg PO DAILY MAT Stop: 09/16/17 09:01 Last Admin: 03/17/17 08:07 Dose: 325 mg Digoxin (Lanoxin) 0.125 mg PO QOD MAT Stop: 09/15/17 15:31 Last Admin: 03/16/17 16:47 Dose: Not Given Famotidine (Pepcid) 20 mg PO BID MAT Stop: 09/15/17 21:01 Last Admin: 03/17/17 08:07 Dose: 20 mg Furosemide (Lasix) 80 mg IVP BIDDIURETIC MAT Stop: 09/15/17 21:01 Last Admin: 03/17/17 08:45 Dose: 80 mg Piperacillin Sod/Tazobactam (Sod 3.375 gm/ Dextrose) 100 mls @ 25 mls/hr IVPB Q8H MAT Stop: 09/15/17 19:01 Last Admin: 03/17/17 03:53 Dose: 25 mls/hr Magnesium Sulfate 2 gm/ (Dextrose) 104 mls @ 100 mls/hr IVPB Q4H MAT Stop: 03/17/17 13:33 Last Admin: 03/17/17 09:56 Dose: 100 mls/hr Insulin Human Lispro (Humalog) 0 units SQ QIDAC MAT PRN Reason: Protocol Stop: 09/15/17 16:31 Last Admin: 03/17/17 08:58 Dose: Not Given Metoprolol Tartrate (Lopressor) 25 mg PO BID [facility] Stop: 09/15/17 21:01 Last Admin: 03/17/17 08:07 Dose: 25 mg Simvastatin (Zocor) 10 mg PO HS [facility] Stop: 09/16/17 21:01 Tramadol HCl (Ultram) 50 mg PO DAILY PRN PRN Reason: Pain Stop: 09/15/17 15:26 - Imaging and Cardiology Chest Xray: report reviewed Echo: report reviewed, other (Impressions: Normal LV systolic function, LVEF 55% . Normal right ventricular size and function. Moderately dilated left atrium. Rheumatic appearing mitral valve with mild-moderately thickened mitral valve leaflets. Moderate mitral regurgitation (eccentric, posteriorly directed). Mild pulmonic regurgitation. Unable to estimate RVSP due to lack of TR jet. Left Ventricular Wall Motion: Rest Echo Findings All wall segments showed normal motion.) Cardiac cath: report reviewed, other (Lesion Findings/Interventions * Left Main Coronary Artery There is a 20% stenosis in the LMCA. * Left Anterior Descending There is a 30% stenosis in the Proximal LAD. There is a 30% stenosis in the Mid LAD. * Circumflex There is a 30% stenosis in the 1st Marginal. * Right Coronary Artery There is a 30% stenosis in the Proximal RCA. There is a 20 % stenosis in the Distal RCA.) Holter: report reviewed, other (Impression: 1. Baseline rhythm is normal sinus throughout recording. 2. Rare PACs. Frequent PVCs. 3. No atrial arrhythmias. 4. Multiple episodes of nonsustained VT. Longest 10beats at 129bpm, fastest 3 beats at 138bpm.) - EKG Interpretation EKG results cardiology: personally reviewed (ST 100's), no diagnostic ischemia, other (Telemetry reviewed with average heart rate 98, sinus rhythm with PVCs and nonsustained VT, no A. fib noted) Consult Discharge Plan - Plan Referrals: Kelly Hicks, [employer] [Primary Care Provider] -
--- NOTE | 2017-03-17 13:09 | Internal Med Progress Note ---
Date of Encounter: 03/17/17 Time of Encounter: 11:50 - Assessment and plan (1) Acute on chronic diastolic CHF (congestive heart failure) Current Visit: Yes Status: Acute Assessment and plan: Cardiology on board and consultation appreciated pt to be switched ot Bmex 1mg IV BID as per cardio monitor daily weights, I/Os fluid restriction diet O2 supplementation will closely monitor (2) Electrolyte abnormality Current Visit: Yes Status: Acute Assessment and plan: Hypomagnesemia and Hypokalemia K and Mg supplemented continue to monitor electrolytes and replace as needed (3) Atrial tachycardia Current Visit: Yes Status: Acute Assessment and plan: resolved at this time cardiology on board d/c digoxin, continue BB (4) CAD (coronary artery disease) Current Visit: No Status: Chronic Assessment and plan: no signs of acute angina present continue home meds (ASA, statin, BB) Qualifiers: Coronary Disease-Associated Artery/Lesion type: [place] artery [place] vs. transplanted heart: [place] heart Associated angina: without angina Qualified Code(s): I25.10 - Atherosclerotic heart disease of [place] coronary artery without angina pectoris (5) CKD (chronic kidney disease) stage 3, GFR 30-59 ml/min Current Visit: No Status: Chronic Assessment and plan: Renal function at baseline continue to monitor (6) Diabetes Current Visit: No Status: Chronic Assessment and plan: continue sliding scale insulin algorithm monitor FS and BG ADA diet Qualifiers: Diabetes mellitus type: type 2 Diabetes mellitus complication status: without complication Diabetes mellitus group home insulin use: without director long term care use Qualified Code(s): E11.9 - Type 2 diabetes mellitus without complications (7) Essential hypertension Current Visit: No Status: Chronic Assessment and plan: BP within acceptable range continue home medications (8) DVT prophylaxis Current Visit: No Status: Acute Assessment and plan: Heparin SQ (9) UTI (urinary tract infection) Current Visit: Yes Status: Acute Assessment and plan: UA consistent with UTI continue empiric IV abx follow up urine culture Qualifiers: Urinary tract infection type: site unspecified Hematuria presence: without hematuria Qualified Code(s): N39.0 - Urinary tract infection, site not specified (10) PNA (pneumonia) Current Visit: Yes Status: Acute Assessment and plan: initial CXR findings concerning for PNA started on empiric abx will continue f/u blood cultures will de-escalate therapy as per culture report Qualifiers: Pneumonia type: due to unspecified organism Laterality: unspecified laterality Lung location: unspecified part of lung Qualified Code(s): J18.9 - Pneumonia, unspecified organism - Subjective Interval history: Patient seen and examined with family present at bedside. Patient reports of feeling significantly better compared to previous day. Reports of taking lasix at home without any relief despite increasing the dose at home. - Constitutional Vitals: Temp Pulse Resp BP Pulse Ox 98.4 F 91 18 110/86 98 03/17/17 11:33 03/17/17 11:33 03/17/17 11:33 03/17/17 11:33 03/17/17 11:33 General appearance: Present: cooperative, A&O X 3, pleasant, no acute distress, obese, answers questions appropriately - Head Head exam: Present: atraumatic, normocephalic - Eye Eye exam: Present: conjuntiva pink, sclera anicteric - Respiratory Respiratory exam: Present: rales (bibasilar rales). Absent: respiratory distress, wheezes - Cardiovascular Cardiovascular exam: Present: RRR, +S1, +S2. Absent: diastolic murmur, gallop, rubs, systolic murmur - GI/Abdominal GI/Abdominal exam: Present: normal bowel sounds, soft, no peritoneal signs. Absent: distended, tenderness - Extremities Exam Extremities exam: Present: pedal edema (2+pitting edema in b/l LE ), warm, radial pulses palpable and symmetrical. Absent: calf tenderness - Neurological Exam Neurological exam: Present: alert, oriented X3 - Psychiatric Psychiatric exam: Present: normal affect, normal mood Internal Medicine: Result - Labs CBC & Chem 7: 03/17/17 05:30 03/17/17 05:30 Labs: Short CBC 03/17/17 Range/Units 05:30 WBC 10.0 (4.3-11.1) K/mcL Hgb 11.2 L D (12.9-16.9) g/dL Hct 34.3 L (37.5-50.1) % Plt Count 203 (140-400) K/mcL Neutrophils # 7.8 (1.6-8.9) K/mcL BMP 03/17/17 05:30 Sodium 136 Potassium 3.4 L Chloride 99 Carbon Dioxide 29 BUN 15 Creatinine 1.03 Glucose 90 Calcium 8.6 Cardiac Enzymes 03/16/17 03/17/17 Range/Units 20:38 05:30 Troponin I 0.06 H* 0.06 H* (0-0.03) ng/mL - ABG Interpretation ABG results: PT/INR, D-dimer PT 18.4 Seconds (9.4-12.1) H 03/16/17 12:43 - VTE Documentation of Mechanical Device: Intermittent pneumatic compression device Consult Discharge Plan - Plan Referrals: Kelly Hicks, [employer]DER [Primary Care Provider] -
[2017-03-17] MEDS ORDERED: *HR* Dextrose 50 % in Water (Syg) 50 ML SYRINGE IVP PRN (13:23)
[2017-03-17] MEDS ORDERED: Dextrose Gel 15 GM PO PRN ×2 (13:23)
[2017-03-17] MEDS ORDERED: D5% in Water 1,000 ML IVC PRN (13:23)
[2017-03-17] MEDS: Bumetanide 1 MG/4 ML VIAL IVP SCH ×2 (14:07→17:20)
[2017-03-17] MEDS: *HR* Heparin 5,000 UNIT/ML VIAL SQ SCH (17:23)
[2017-03-17] MEDS ORDERED: Furosemide 40 MG/4 ML VIAL IVP SCH (21:00)
[2017-03-18] MEDS ORDERED: Temazepam 15 MG CAPSULE PO ONE (01:12)
[2017-03-18] MEDS: *HR* Heparin 5,000 UNIT/ML VIAL SQ SCH ×2 (06:28→16:53)
[2017-03-18 07:06] LABS: BUN/Creatinine Ratio 14 (6-26); Blood Urea Nitrogen 18 mg/dL (8-26); Calcium 9.1 mg/dL (8.6-10.8); Carbon Dioxide 29 mEq/L (19-29); Chloride 97 mEq/L (98-109); Glucose 145 mg/dL (70-99); Osmolality,Calculated 282 (280-300); Phosphorous 2.9 mg/dL (2.3-4.7); Sodium 134 mEq/L (136-145); eGFR For African Americans > 60 (> 60); eGFR For Non-African Americans 56 (> 60)
[2017-03-18 07:17] LABS: Basophils % 0.4 %; Eosinophils % 0.3 %; Hematocrit 36.9 % (37.5-50.1); Hemoglobin 11.9 g/dL (12.9-16.9); Immature Granulocytes % 0.5 % (0-4); Lymphocytes # 1.9 K/mcL (0.6-4.6); Lymphocytes % 19.8 %; Mean Corpuscular HGB Conc 32.2 g/dL (31.6-35.5); Mean Corpuscular Hemoglobin 27.5 pg (28.0-33.3); Mean Corpuscular Volume 85.2 fL (83.0-100.0); Mean Platelet Volume 11.2 fL (9.4-12.4); Monocytes # 1.2 K/mcL (0.0-1.3); Monocytes % 12.3 %; Neutrophils # 6.5 K/mcL (1.6-8.9); Platelet Count 255 K/mcL (140-400); Red Blood Count 4.33 M/mcL (4.19-5.50); Red Cell Distribution Width 16.1 % (11.5-14.5); Segmented Neutrophils % 66.7 %
[2017-03-18] MEDS: levoFLOXacin 750 MG TABLET PO SCH (07:20)
[2017-03-18] MEDS: Bumetanide 1 MG/4 ML VIAL IVP SCH (07:20)
[2017-03-18] MEDS: Aspirin 81 MG TAB.CHEW PO SCH (07:20)
[2017-03-18] MEDS: Famotidine 20 MG TABLET PO SCH ×2 (07:20→20:37)
[2017-03-18] MEDS: Insulin LISPRO 300 UNITS/3 ML VIAL SQ SCH ×4 (07:21→21:00)
[2017-03-18] MEDS ORDERED: Magnesium Sulfate 2 GM in D5% in Water 100 ML IVPB ONE (07:30)
--- NOTE | 2017-03-18 07:31 | Cardiology Progress Note ---
Date of Encounter: 03/18/17 Time of Encounter: 07:30 Assessment and Plan (1) Congestive heart failure Current Visit: Yes Status: Acute Per Cardiology: CXR: IMPRESSION: There is a persistent small right pleural effusion, with some improved aeration at the right lung base with mild persistent basilar airspace disease which could represent atelectasis or pneumonia. No new infiltrate. BNP noted to be 3996-- comparable to previous recent test results. Has not follow-up with cardiology since August 2016. Appears recently nonresponsive to PO Lasix at home. On IV Bumex 1mg BID and net -3741ml. He reports baseline weight about 200 pounds-- weighed 204 08/2016, weight initially 217?, now 202lbs according to records. K+ stable, will replace Mg. Echo from August 2016 showed preserved EF 55%, moderate MR-- rheumatic appearing mitral valve. Current echo pending to assess mitral valve. Continue strict I&O, daily weights, fluid restriction, KELSEY hose. Hx of CKD 3A-- current kidney fxn slightly worse, but around baseline. Will monitor closely with diuresis. Qualifiers: Congestive heart failure type: unspecified congestive heart failure type Congestive heart failure chronicity: acute on chronic Qualified Code(s): I50.9 - Heart failure, unspecified (2) Atrial tachycardia Current Visit: Yes Status: Acute Per Cardiology: Tele with avg HR 100bpm past 12 hrs, 90s with occasional PACs and PVCs. No significant events noted. On beta gloria. Systolic blood pressures in the 100s. (3) CAD (coronary artery disease) Current Visit: No Status: Chronic Per Cardiology: Had [facility] 08/2016 d/t NSVT on Holter. Mild nonobstrutive CAD. On asa, statin, and BB. Qualifiers: Coronary Disease-Associated Artery/Lesion type: [place] artery [place] vs. transplanted heart: [place] heart Associated angina: without angina Qualified Code(s): I25.10 - Atherosclerotic heart disease of [place] coronary artery without angina pectoris (4) Elevated troponin I level Current Visit: No Status: Acute Per Cardiology: Remains CP free. Had mild troponins of 0.06 3-- suspect demand ischemia in setting of CHF. Had mild troponin elevations January 2017 as well. recent [facility] mild nonobstructive CAD. (5) Elevated INR Current Visit: Yes Status: Acute Per Cardiology: 03/27 Abd/Pelvic CT: IMPRESSION: Moderate abdominal and pelvic ascites. Cholelithiasis. No cholecystitis. Bilateral pleural effusions, right greater than left. Tiny noncalcified pulmonary nodule is seen on left Elevated T bili. INR 1.7, not on AC. Further management per primary service. Discussion w patient/family: The assessment and plan as outlined above was discussed with the patient and/or family members who expressed understanding and agreement. All questions were answered. Thank you for involving us in the care of your patient. Please call with any questions. Subjective Principal diagnosis: CHF, SOB, Edema Interval history: Patient denies CP. Report mild improvement in SOB and edema. Denies any new concerns. Objective Vital Signs, Last 4 Hours Temp Pulse Resp BP Pulse Ox 03/18/17 07:18 98.2 F 98 20 99/81 96 Selected Entries 03/18/17 00:51 03/18/17 03:24 Blood Pressure 109/87 109/83 General: Conversant, No Apparent Distress HEENT: Atraumatic, Normocephaly Neck: No JVD Cardiac: Reg Rate and Rhythm, Normal S1 and S2, No Murmur Lungs: Normal Breath Sounds, No Wheeze, Rales, Rhonchi, Other (Slightly diminished R base) Neuro: Alert and responsive, No focal deficits noted Skin: No rashes noted on visualized skin Extremities: Other (KELSEY hiose on, +1-2 pitting edema bilateral LE) Results 03/18/17 06:35 03/18/17 06:35 Lab Results Laboratory Tests 03/18/17 03/18/17 06:35 06:35 Potassium 4.0 Creatinine 1.32 H Est GFR (Non-Af Amer) 56 L Magnesium 1.5 L Intake & Output 03/15/17 03/16/17 03/17/17 03/18/17 23:59 23:59 23:59 23:59 Intake Total 150 / 150 1084 / 1084 400 / 400 Output Total 950 / 950 4275 / 4275 150 / 150 Balance -800 / -800 -3191 / -3191 250 / 250 Weight 93.242 kg 92.1 kg Active Medications Aspirin (Aspirin) 81 mg PO DAILY MAT Stop: 09/17/17 09:01 Last Admin: 03/18/17 07:20 Dose: 81 mg Bumetanide (Bumex) 1 mg IVP BIDDIURETIC [facility] Stop: 09/16/17 12:16 Last Admin: 03/18/17 07:20 Dose: 1 mg Dextrose/Water (Dextrose 50% (Syg)) 25 ml IVP AD PRN PRN Reason: Hypoglycemia Stop: 09/16/17 13:24 Famotidine (Pepcid) 20 mg PO BID MAT Stop: 09/15/17 21:01 Last Admin: 03/18/17 07:20 Dose: 20 mg Glucagon (Glucagen) 1 mg IM ONCE PRN PRN Reason: Hypoglycemia Stop: 09/16/17 13:24 Glucose (Gluctose) 15 gm PO ONCE PRN PRN Reason: Hypoglycemia Stop: 09/16/17 13:24 Glucose (Gluctose) 30 gm PO ONCE PRN PRN Reason: Hypoglycemia Stop: 09/16/17 13:24 Heparin Sodium (Porcine) (Heparin) 5,000 unit SQ Q12HCO [facility] Stop: 09/16/17 18:01 Last Admin: 03/18/17 06:28 Dose: 5,000 unit Dextrose (Dextrose 5%) 1,000 mls @ 100 mls/hr IVC .Q10H PRN PRN Reason: HYPOGLYCEMIA Stop: 09/16/17 13:24 Magnesium Sulfate 2 gm/ (Dextrose) 104 mls @ 50 mls/hr IVPB ONCE ONE Stop: 03/18/17 09:34 Insulin Human Lispro (Humalog) 0 units SQ HS [facility] PRN Reason: Protocol Stop: 09/16/17 21:01 Last Admin: 03/17/17 21:31 Dose: 2 units Insulin Human Lispro (Humalog) 0 units SQ TIDAC [facility] PRN Reason: Protocol Stop: 09/15/17 16:31 Last Admin: 03/18/17 07:21 Dose: 2 units Levofloxacin (Levaquin) 750 mg PO DAILY [facility] Stop: 09/17/17 09:01 Last Admin: 03/18/17 07:20 Dose: 750 mg Magnesium Oxide (Mag-Ox) 400 mg PO BID MAT PRN Reason: Protocol Stop: 09/17/17 09:01 Metoprolol Tartrate (Lopressor) 25 mg PO BID [facility] Stop: 09/15/17 21:01 Last Admin: 03/18/17 07:20 Dose: 25 mg Simvastatin (Zocor) 10 mg PO HS [facility] Stop: 09/16/17 21:01 Last Admin: 03/17/17 21:29 Dose: 10 mg Tramadol HCl (Ultram) 50 mg PO DAILY PRN PRN Reason: Pain Stop: 09/15/17 15:26 - Imaging and Cardiology Echo: pending, report reviewed - EKG Interpretation EKG results cardiology: other (12 hr tele shows avg HR 100, currently SR 90's with PACs and PVCs, no events noted) - VTE Documentation of Mechanical Device: Graduated compression elastic hosiery Consult Discharge Plan - Plan Referrals: Kelly Hicks, PIN MACHINE OPERATOR [Primary Care Provider] -
[2017-03-18] MEDS: Magnesium Oxide 400 MG TABLET PO SCH ×2 (09:02→20:37)
--- NOTE | 2017-03-18 11:17 | Internal Med Progress Note ---
Date of Encounter: 03/18/17 Time of Encounter: 11:15 - Assessment and plan (1) Acute on chronic diastolic CHF (congestive heart failure) Current Visit: Yes Status: Acute Assessment and plan: Cardiology on board and consultation appreciated pt reports of having decrease in urine output with Bumex and states he was having better urine output with Lasix Will d/c bumex and start Lasix 40mg IV BID monitor daily weights, I/Os fluid restriction diet O2 supplementation will closely monitor 2D echo showed: LVEF 15-20%. Eccentric moderate mitral regurgitation, consider MADELAINE for further evaluation of mitral regurgitation Severely dilated left atrium. Severe global left ventricular systolic dysfunction. Probably severe left ventricular diastolic dysfunction. Mild concentric left ventricular hypertrophy. Mildly dilated right ventricle. Severe right ventricular hypokinesis. Suspicious for cardiac amyloidosis with valvular thickening elevated D-dimer, pt to get V/Q scan to rule out PE scheduled for LHC in am NPO after midnight (2) Electrolyte abnormality Current Visit: Yes Status: Acute (3) Atrial tachycardia Current Visit: Yes Status: Acute Assessment and plan: resolved at this time cardiology on board continue BB (4) CAD (coronary artery disease) Current Visit: No Status: Chronic Assessment and plan: no signs of acute angina present continue home meds (ASA, statin, BB) Qualifiers: Coronary Disease-Associated Artery/Lesion type: [place] artery [place] vs. transplanted heart: [place] heart Associated angina: without angina Qualified Code(s): I25.10 - Atherosclerotic heart disease of [place] coronary artery without angina pectoris (5) CKD (chronic kidney disease) stage 3, GFR 30-59 ml/min Current Visit: No Status: Chronic Assessment and plan: Elevation in creatinine noted likely secondary to aggressive diuretic support will continue diuresis given severe CHF decompensation closely monitor renal function (6) Diabetes Current Visit: No Status: Chronic Assessment and plan: continue sliding scale insulin algorithm monitor FS and BG ADA diet Qualifiers: Diabetes mellitus type: type 2 Diabetes mellitus complication status: without complication Diabetes mellitus alf insulin use: without alf use Qualified Code(s): E11.9 - Type 2 diabetes mellitus without complications (7) Essential hypertension Current Visit: No Status: Chronic Assessment and plan: BP within acceptable range continue home medications (8) DVT prophylaxis Current Visit: No Status: Acute Assessment and plan: Heparin SQ (9) UTI (urinary tract infection) Current Visit: Yes Status: Acute Assessment and plan: UA consistent with UTI continue empiric IV abx urine culture showed NO growth will continue IV abx for 7 days Qualifiers: Urinary tract infection type: site unspecified Hematuria presence: without hematuria Qualified Code(s): N39.0 - Urinary tract infection, site not specified (10) PNA (pneumonia) Current Visit: Yes Status: Acute Assessment and plan: initial CXR findings concerning for PNA continue Levaquin f/u blood cultures Qualifiers: Pneumonia type: due to unspecified organism Laterality: unspecified laterality Lung location: unspecified part of lung Qualified Code(s): J18.9 - Pneumonia, unspecified organism (11) Hypomagnesemia Current Visit: Yes Status: Acute Assessment and plan: Mg supplemented continue to monitor electrolytes and replace as needed - Subjective Interval history: Patient seen and examined with family present at bedside. Pt reports of having better urine output with lasix compared to Bumex. 2D echo findings show significant change in LVEF compared to August 2016. STAT D dimer was ordered by cardiology concerning for right heart strain. Elevated D dimer reported. will obtain V/Q scan to rule out PE given renal impairment. - Constitutional Vitals: Temp Pulse Resp BP Pulse Ox 98.2 F 98 20 99/81 96 03/18/17 07:18 03/18/17 07:18 03/18/17 07:18 03/18/17 07:18 03/18/17 07:18 General appearance: Present: cooperative, A&O X 3, pleasant, no acute distress, obese, answers questions appropriately - Head Head exam: Present: atraumatic, normocephalic - Eye Eye exam: Present: conjuntiva pink, sclera anicteric - Respiratory Respiratory exam: Present: rales (bibasilar crackles). Absent: respiratory distress, wheezes - Cardiovascular Cardiovascular exam: Present: RRR, +S1, +S2. Absent: diastolic murmur, gallop, rubs, systolic murmur - GI/Abdominal GI/Abdominal exam: Present: normal bowel sounds, soft, no peritoneal signs. Absent: distended, tenderness - Extremities Exam Extremities exam: Present: pedal edema, warm, radial pulses palpable and symmetrical. Absent: calf tenderness - Neurological Exam Neurological exam: Present: alert, oriented X3 - Psychiatric Psychiatric exam: Present: normal affect, normal mood Internal Medicine: Result - Labs CBC & Chem 7: 03/18/17 06:35 03/18/17 06:35 Labs: Short CBC 03/18/17 Range/Units 06:35 WBC 9.8 (4.3-11.1) K/mcL Hgb 11.9 L (12.9-16.9) g/dL Hct 36.9 L (37.5-50.1) % Plt Count 255 (140-400) K/mcL Neutrophils # 6.5 (1.6-8.9) K/mcL BMP 03/18/17 06:35 Sodium 134 L Potassium 4.0 Chloride 97 L Carbon Dioxide 29 BUN 18 Creatinine 1.32 H Glucose 145 H Calcium 9.1 - ABG Interpretation ABG results: PT/INR, D-dimer PT 18.4 Seconds (9.4-12.1) H 03/16/17 12:43 D-Dimer 7073 ng/mLFEU (0-500) H 03/18/17 09:10 - Impressions Impressions Echocardiogram 03/18/17 12:10 Impressions: LVEF 15-20%. Eccentric moderate mitral regurgitation, consider MADELAINE for further evaluation of mitral regurgitation Severely dilated left atrium. Severe global left ventricular systolic dysfunction. Probably severe left ventricular diastolic dysfunction. Mild concentric left ventricular hypertrophy. Mildly dilated right ventricle. Severe right ventricular hypokinesis. Suspicious for cardiac amyloidosis with valvular thickening Left Ventricular Wall Motion: Rest Echo Findings The apex, apical inferior, mid inferior, basal inferior, apical anterior, mid anterior, basal anterior, apical septal, mid inferior septal, basal inferior septal, apical lateral, mid anterior lateral, basal anterior lateral, mid anterior septal, mid inferior lateral, basal anterior septal and basal inferior lateral mixon were hypokinetic. Findings: Study Quality * Technically adequate exam. Right Atrium * Normal right atrial size. Interatrial Septum * No evidence of PFO by color Doppler. Aorta * Normally sized aortic root. ECG Findings * Sinus rhythm with PVCs. Pericardium * There is a small pericardial effusion present. Mitral Valve * Thickened mitral valve * Moderate mitral regurgitation. Aortic Valve * Trileaflet aortic valve. * Thickened leaflets * Trace aortic regurgitation. Left Atrium * Severely dilated left atrium. Pulmonic Valve * No pulmonic stenosis. * Mild-moderate pulmonic regurgitation. Left Ventricle * LVEF 15-20%. * Severe global left ventricular systolic dysfunction. * Probably severe left ventricular diastolic dysfunction. * Mild concentric left ventricular hypertrophy. Right Ventricle * Mildly dilated right ventricle. * Severe right ventricular hypokinesis. Tricuspid Valve * Mild tricuspid regurgitation. * No tricuspid stenosis. * Estimated RVSP is 12 mmHg. * Estimated RA pressure is 10-15 mmHg. - VTE Documentation of Mechanical Device: Graduated compression elastic hosiery Consult Discharge Plan - Plan Referrals: Kelly Hicks, INSPECTOR [employer] [Primary Care Provider] -
--- NOTE | 2017-03-18 13:37 | Event Note ---
Date of Encounter: 03/18/17 Time of Encounter: 13:40 - Cardiology Event Note IMPRESSION: Low probability for pulmonary embolus. Plan for LHC in am if kidney fxn stable.
[2017-03-18] MEDS: Furosemide 40 MG/4 ML VIAL IVP SCH (16:53)
[2017-03-19 00:47] LABS: Basophils # 0.1 K/mcL (0.0-0.2); Basophils % 0.5 %; Eosinophils % 0.2 %; Hemoglobin 11.9 g/dL (12.9-16.9); Immature Granulocytes % 0.6 % (0-4); Immature Platelets 6.2 % (1.1-6.1); Lymphocytes # 2.1 K/mcL (0.6-4.6); Lymphocytes % 20.1 %; Mean Corpuscular HGB Conc 31.3 g/dL (31.6-35.5); Mean Corpuscular Hemoglobin 26.9 pg (28.0-33.3); Mean Corpuscular Volume 85.8 fL (83.0-100.0); Mean Platelet Volume 11.1 fL (9.4-12.4); Monocytes # 1.3 K/mcL (0.0-1.3); Neutrophils # 6.9 K/mcL (1.6-8.9); Platelet Count 282 K/mcL (140-400); Red Blood Count 4.43 M/mcL (4.19-5.50); Segmented Neutrophils % 66.6 %
[2017-03-19 00:56] LABS: BUN/Creatinine Ratio 17 (6-26); Blood Urea Nitrogen 23 mg/dL (8-26); Calcium 8.9 mg/dL (8.6-10.8); Carbon Dioxide 27 mEq/L (19-29); Chloride 96 mEq/L (98-109); Glucose 170 mg/dL (70-99); Magnesium 1.7 mg/dL (1.6-2.6); Osmolality,Calculated 284 (280-300); Potassium 4.1 mEq/L (3.5-4.5); Sodium 133 mEq/L (136-145); eGFR For African Americans > 60 (> 60); eGFR For Non-African Americans 52 (> 60)
[2017-03-19] MEDS: *HR* Heparin 5,000 UNIT/ML VIAL SQ SCH ×2 (06:54→17:05)
[2017-03-19] MEDS ORDERED: 0.9 % Sodium Chloride 1,000 ML ONE (07:44)
[2017-03-19] MEDS ORDERED: Heparin 1,000 UNITS/500 mL NS 500 ML ONE (07:44)
[2017-03-19] MEDS ORDERED: *HR* Heparin 10,000 UNIT/10 ML VIAL ONE (07:45)
[2017-03-19] MEDS: Insulin LISPRO 300 UNITS/3 ML VIAL SQ SCH ×3 (08:37→17:05)
--- NOTE | 2017-03-19 09:08 | Cardiology Progress Note ---
Date of Encounter: 03/19/17 Time of Encounter: 09:00 Assessment and Plan (1) Congestive heart failure Current Visit: Yes Status: Acute Per Cardiology: BNP on arrival 3996-- comparable to previous recent test results. Has not follow -up with cardiology since August 2016. Appears recently nonresponsive to PO Lasix at home. On IV Lasix 40mg BID and net -4031ml. He reports baseline weight about 200 pounds-- weighed 204 08/2016, weight initially 217?, now 202lbs according to records. K+ and Mg+ stable. Echo from August 2016 showed preserved EF 55%, moderate MR-- rheumatic appearing mitral valve. Current echo shows: Impressions: LVEF 15-20%. Eccentric moderate mitral regurgitation, consider MADELAINE for further evaluation of mitral regurgitation Severely dilated left atrium. Severe global left ventricular systolic dysfunction. Probably severe left ventricular diastolic dysfunction. Mild concentric left ventricular hypertrophy. Mildly dilated right ventricle. Severe right ventricular hypokinesis. Suspicious for cardiac amyloidosis with valvular thickening Left Ventricular Wall Motion: Rest Echo Findings The apex, apical inferior, mid inferior, basal inferior, apical anterior, mid anterior, basal anterior, apical septal, mid inferior septal, basal inferior septal, apical lateral, mid anterior lateral, basal anterior lateral, mid anterior septal, mid inferior lateral, basal anterior septal and basal inferior lateral mixon were hypokinetic. Continue strict I&O, daily weights, fluid restriction, KELSEY hose. Hx of CKD 3A-- current kidney fxn stable. Discussed and reviewed with Dr. Nassar, recs for no repeat LHC today. Rec to proceed with Cardiac MRI, discussed with Dr. Peng, rec transfer to [facility] to obtain Cardiac MRI as inpatient (not currently service provided here) and referral to [facility]. Patient and have agreed. Will C/S Social Work (patient with insurance concerns). Qualifiers: Congestive heart failure type: unspecified congestive heart failure type Congestive heart failure chronicity: acute on chronic Qualified Code(s): I50.9 - Heart failure, unspecified (2) Elevated troponin I level Current Visit: No Status: Acute Per Cardiology: Remains CP free. Had mild troponins of 0.06 3-- suspect demand ischemia in setting of CHF. Had mild troponin elevations January 2017 as well. recent LHC mild nonobstructive CAD. (3) CAD (coronary artery disease) Current Visit: No Status: Chronic Per Cardiology: Had LHC 08/2016 d/t NSVT on Holter. Mild nonobstrutive CAD. On asa, statin, and BB. Echo results reviewed with interventional cardiology Dr. Nassar, no recs for repeat C today. Refer to [facility] for Cardiac MRI as above. Qualifiers: Coronary Disease-Associated Artery/Lesion type: [place] artery [place] vs. transplanted heart: [place] heart Associated angina: without angina Qualified Code(s): I25.10 - Atherosclerotic heart disease of [place] coronary artery without angina pectoris Discussion w patient/family: The assessment and plan as outlined above was discussed with the patient and/or family members who expressed understanding and agreement. All questions were answered. Thank you for involving us in the care of your patient. Please call with any questions. Subjective Principal diagnosis: CHF, SOB, Edema Interval history: Patient denies CP. Report mild improvement in SOB and edema. Continues with BUCKLEY to bathroom. Denies any new concerns. Objective Vital Signs, Last 4 Hours Temp Pulse Resp BP Pulse Ox 03/19/17 08:05 98.5 F 90 19 148/60 95 General: Conversant, No Apparent Distress HEENT: Atraumatic, Normocephaly Cardiac: Reg Rate and Rhythm, Normal S1 and S2, No Murmur Lungs: Normal Breath Sounds, No Wheeze, Rales, Rhonchi Neuro: Alert and responsive, No focal deficits noted Abdomen: Soft, Non-Tender Extremities: Other (+1-2 pitting bilateral LE edema) Results 03/19/17 00:30 03/19/17 00:30 Lab Results Laboratory Tests 03/18/17 03/19/17 09:10 00:30 D-Dimer 7073 H Creatinine 1.39 H Est GFR (Non-Af Amer) 52 L Magnesium 1.7 Impressions Pulmonary Perfusion Imaging 03/18/17 11:12 IMPRESSION: Low probability for pulmonary embolus. D/ / Alfredo Kim MD / Alfredo Kim MD Interpreting Provider: Alfredo Kim MD Chest X-Ray 03/18/17 12:41 IMPRESSION: Improved trace right pleural effusion. Right basilar atelectasis with nonspecific elevation of right hemidiaphragm. Recommend radiographic follow-up to complete resolution. D/ / Nino Biggs / Nino Biggs Interpreting Provider: Nino Biggs Intake & Output 03/16/17 03/17/17 03/18/17 03/19/17 23:59 23:59 23:59 23:59 Intake Total 150 / 150 1084 / 1084 760 / 760 Output Total 950 / 950 4275 / 4275 550 / 550 250 / 250 Balance -800 / -800 -3191 / -3191 210 / 210 -250 / -250 Weight 93.242 kg 92.1 kg 92.7 kg Active Medications Aspirin (Aspirin) 81 mg PO DAILY MAT Stop: 09/17/17 09:01 Last Admin: 03/18/17 07:20 Dose: 81 mg Dextrose/Water (Dextrose 50% (Syg)) 25 ml IVP AD PRN PRN Reason: Hypoglycemia Stop: 09/16/17 13:24 Famotidine (Pepcid) 20 mg PO BID [facility] Stop: 09/15/17 21:01 Last Admin: 03/18/17 20:37 Dose: 20 mg Furosemide (Lasix) 40 mg IVP BIDDIURETIC [facility] Stop: 09/17/17 17:01 Last Admin: 03/18/17 16:53 Dose: 40 mg Glucagon (Glucagen) 1 mg IM ONCE PRN PRN Reason: Hypoglycemia Stop: 09/16/17 13:24 Glucose (Gluctose) 15 gm PO ONCE PRN PRN Reason: Hypoglycemia Stop: 09/16/17 13:24 Glucose (Gluctose) 30 gm PO ONCE PRN PRN Reason: Hypoglycemia Stop: 09/16/17 13:24 Heparin Sodium (Porcine) (Heparin) 5,000 unit SQ Q12HCO [facility] Stop: 09/16/17 18:01 Last Admin: 03/19/17 06:54 Dose: Not Given Dextrose (Dextrose 5%) 1,000 mls @ 100 mls/hr IVC .Q10H PRN PRN Reason: HYPOGLYCEMIA Stop: 09/16/17 13:24 Insulin Human Lispro (Humalog) 0 units SQ HS [facility] PRN Reason: Protocol Stop: 09/16/17 21:01 Last Admin: 03/18/17 21:00 Dose: Not Given Insulin Human Lispro (Humalog) 0 units SQ TIDAC [facility] PRN Reason: Protocol Stop: 09/15/17 16:31 Last Admin: 03/19/17 08:37 Dose: Not Given Levofloxacin (Levaquin) 750 mg PO DAILY [facility] Stop: 09/17/17 09:01 Last Admin: 03/18/17 07:20 Dose: 750 mg Magnesium Oxide (Mag-Ox) 400 mg PO BID [facility] PRN Reason: Protocol Stop: 09/17/17 09:01 Last Admin: 03/18/17 20:37 Dose: 400 mg Metoprolol Tartrate (Lopressor) 25 mg PO BID [facility] Stop: 09/15/17 21:01 Last Admin: 03/18/17 20:37 Dose: 25 mg Simvastatin (Zocor) 10 mg PO HS [facility] Stop: 09/16/17 21:01 Last Admin: 03/18/17 20:37 Dose: 10 mg Tramadol HCl (Ultram) 50 mg PO DAILY PRN PRN Reason: Pain Stop: 09/15/17 15:26 - Imaging and Cardiology Chest Xray: report reviewed - EKG Interpretation EKG results cardiology: other (SR with avg HR 93, PVCs, longtest NSVT 3 beats) - VTE Documentation of Mechanical Device: Graduated compression elastic hosiery Consult Discharge Plan - Plan Referrals: Kelly Hicks, [employer]IV[employer]MER MACHINE OPERATOR [Primary Care Provider] -
[2017-03-19] MEDS: Furosemide 40 MG/4 ML VIAL IVP SCH ×2 (10:51→17:05)
[2017-03-19] MEDS: Aspirin 81 MG TAB.CHEW PO SCH (10:51)
[2017-03-19] MEDS: Magnesium Oxide 400 MG TABLET PO SCH (10:52)
[2017-03-19] MEDS: levoFLOXacin 750 MG TABLET PO SCH (10:52)
[2017-03-19] MEDS: Famotidine 20 MG TABLET PO SCH (10:52)
--- NOTE | 2017-03-19 12:10 | Transfer Summary ---
Date of Encounter: 03/19/17 Time of Encounter: 12:07 Transfer Discharge Sum: Diag - Discharge Diagnosis (1) Acute on chronic diastolic CHF (congestive heart failure) Status: Acute (2) Electrolyte abnormality Status: Acute (3) Atrial tachycardia Status: Acute (4) CAD (coronary artery disease) Status: Chronic (5) CKD (chronic kidney disease) stage 3, GFR 30-59 ml/min Status: Chronic (6) Diabetes Status: Chronic (7) Essential hypertension Status: Chronic (8) DVT prophylaxis Status: Acute (9) UTI (urinary tract infection) Status: Acute (10) PNA (pneumonia) Status: Acute (11) Hypomagnesemia Status: Acute Transfer Discharge Sum: Med - Medications Active and Home Medications: Home Medications Glimepiride [Amaryl] 8 mg PO QAM 08/18/16 [History Confirmed 03/16/17] Lisinopril [Zestril] 40 mg PO DAILY 08/18/16 [History Confirmed 03/16/17] Lovastatin [Mevacor] 20 mg PO DAILY 08/18/16 [History Confirmed 03/16/17] Metformin HCl [Glucophage] 1,000 mg PO BID 08/18/16 [History Confirmed 03/16/17] Ranitidine HCl [Zantac] 150 mg PO BID 08/18/16 [History Confirmed 03/16/17] SitaGLIPtin [Januvia] 100 mg PO DAILY 08/18/16 [History Confirmed 03/16/17] Tramadol HCl [Ultram] 50 mg PO DAILY PRN 08/18/16 [History Confirmed 03/16/17] Aspirin 325 mg PO DAILY 02/07/17 [History Confirmed 03/16/17] Furosemide [Lasix] 40 mg PO DAILY 02/07/17 [History Confirmed 03/16/17] Metoprolol [Lopressor] 25 mg PO BID 02/07/17 [History Confirmed 03/16/17] Active Medications Aspirin (Aspirin) 81 mg PO DAILY MAT Stop: 09/17/17 09:01 Last Admin: 03/19/17 10:51 Dose: 81 mg Dextrose/Water (Dextrose 50% (Syg)) 25 ml IVP AD PRN PRN Reason: Hypoglycemia Stop: 09/16/17 13:24 Famotidine (Pepcid) 20 mg PO BID MAT Stop: 09/15/17 21:01 Last Admin: 03/19/17 10:52 Dose: 20 mg Furosemide (Lasix) 40 mg IVP BIDDIURETIC [facility] Stop: 09/17/17 17:01 Last Admin: 03/19/17 10:51 Dose: 40 mg Glucagon (Glucagen) 1 mg IM ONCE PRN PRN Reason: Hypoglycemia Stop: 09/16/17 13:24 Glucose (Gluctose) 15 gm PO ONCE PRN PRN Reason: Hypoglycemia Stop: 09/16/17 13:24 Glucose (Gluctose) 30 gm PO ONCE PRN PRN Reason: Hypoglycemia Stop: 09/16/17 13:24 Heparin Sodium (Porcine) (Heparin) 5,000 unit SQ Q12HCO [facility] Stop: 09/16/17 18:01 Last Admin: 03/19/17 06:54 Dose: Not Given Dextrose (Dextrose 5%) 1,000 mls @ 100 mls/hr IVC .Q10H PRN PRN Reason: HYPOGLYCEMIA Stop: 09/16/17 13:24 Insulin Human Lispro (Humalog) 0 units SQ [facility] PRN Reason: Protocol Stop: 09/16/17 21:01 Last Admin: 03/18/17 21:00 Dose: Not Given Insulin Human Lispro (Humalog) 0 units SQ TIDAC [facility] PRN Reason: Protocol Stop: 09/15/17 16:31 Last Admin: 03/19/17 08:37 Dose: Not Given Levofloxacin (Levaquin) 750 mg PO DAILY [facility] Stop: 09/17/17 09:01 Last Admin: 03/19/17 10:52 Dose: 750 mg Magnesium Oxide (Mag-Ox) 400 mg PO BID [facility] PRN Reason: Protocol Stop: 09/17/17 09:01 Last Admin: 03/19/17 10:52 Dose: 400 mg Metoprolol Tartrate (Lopressor) 25 mg PO BID [facility] Stop: 09/15/17 21:01 Last Admin: 03/19/17 10:52 Dose: 25 mg Simvastatin (Zocor) 10 mg PO HS [facility] Stop: 09/16/17 21:01 Last Admin: 03/18/17 20:37 Dose: 10 mg Tramadol HCl (Ultram) 50 mg PO DAILY PRN PRN Reason: Pain Stop: 09/15/17 15:26 Transfer Discharge Sum: Data Procedures and tests throughout hospitalization: Pending Orders 03/16/17 19:03 12 lead ECG assessment [RC] NOW 03/16/17 20:38 CK Isoenzymes Routine 03/17/17 12:44 Intake and Output, Strict [RC] DAILY Measure weight [RC] .DAILY 03/17/17 13:23 Hypoglycemia Treatment Orders [RC] .once Notify provider [RC] once D5% in Water [Dextrose 5%] 1,000 ml IVC 100 mls/hr Dextrose 50 % in Water (Syg) [Dextrose 50% (Syg)] 25 ml IVP AD PRN Dextrose Gel [Gluctose] 15 gm PO ONCE PRN Dextrose Gel [Gluctose] 30 gm PO ONCE PRN Glucagon, Human Recombinant [GlucaGen] 1 mg IM ONCE PRN 03/17/17 18:00 Heparin 5,000 unit SQ Q12HCO 03/17/17 21:00 Insulin LISPRO [HumaLOG] See Protocol SQ HS 03/18/17 07:30 Insulin LISPRO [HumaLOG] 0 units SQ TIDAC 03/18/17 08:41 Cardiac Cath Site Preparation Routine Oxygen via nasal cannula Nasal Cannula 2 lpm 03/18/17 09:00 Aspirin 81 mg PO DAILY Magnesium Oxide [Mag-Ox] 400 mg PO BID levoFLOXacin [Levaquin] 750 mg PO DAILY 03/18/17 17:00 Furosemide [Lasix] 40 mg IVP BIDDIURETIC 03/19/17 08:41 CL Cardiac Catheterization [CL] Routine 03/19/17 09:17 Consult to Spanish Interpreter [CONS] Routine - Impressions ITS Impressions Pulmonary Perfusion Imaging 03/18/17 11:12 IMPRESSION: Low probability for pulmonary embolus. D/ / Alfredo Kim MD / Alfredo Kim MD Interpreting Provider: Alfredo Kim MD Echocardiogram 03/18/17 12:10 Impressions: LVEF 15-20%. Eccentric moderate mitral regurgitation, consider MADELAINE for further evaluation of mitral regurgitation Severely dilated left atrium. Severe global left ventricular systolic dysfunction. Probably severe left ventricular diastolic dysfunction. Mild concentric left ventricular hypertrophy. Mildly dilated right ventricle. Severe right ventricular hypokinesis. Suspicious for cardiac amyloidosis with valvular thickening Left Ventricular Wall Motion: Rest Echo Findings The apex, apical inferior, mid inferior, basal inferior, apical anterior, mid anterior, basal anterior, apical septal, mid inferior septal, basal inferior septal, apical lateral, mid anterior lateral, basal anterior lateral, mid anterior septal, mid inferior lateral, basal anterior septal and basal inferior lateral mixon were hypokinetic. Findings: Study Quality * Technically adequate exam. Right Atrium * Normal right atrial size. Interatrial Septum * No evidence of PFO by color Doppler. Aorta * Normally sized aortic root. ECG Findings * Sinus rhythm with PVCs. Pericardium * There is a small pericardial effusion present. Mitral Valve * Thickened mitral valve * Moderate mitral regurgitation. Aortic Valve * Trileaflet aortic valve. * Thickened leaflets * Trace aortic regurgitation. Left Atrium * Severely dilated left atrium. Pulmonic Valve * No pulmonic stenosis. * Mild-moderate pulmonic regurgitation. Left Ventricle * LVEF 15-20%. * Severe global left ventricular systolic dysfunction. * Probably severe left ventricular diastolic dysfunction. * Mild concentric left ventricular hypertrophy. Right Ventricle * Mildly dilated right ventricle. * Severe right ventricular hypokinesis. Tricuspid Valve * Mild tricuspid regurgitation. * No tricuspid stenosis. * Estimated RVSP is 12 mmHg. * Estimated RA pressure is 10-15 mmHg. Chest X-Ray 03/18/17 12:41 IMPRESSION: Improved trace right pleural effusion. Right basilar atelectasis with nonspecific elevation of right hemidiaphragm. Recommend radiographic follow-up to complete resolution. D/ / Nino Biggs / Nino Biggs Interpreting Provider: Nino Biggs Transfer Discharge Sum: Prov Date of admission: 03/16/17 15:28 Primary care physician: Kelly Hicks CNP Consults: 03/19/17 09:17 Consult to Spanish Interpreter [CONS] Routine Reason for SW Consult: plans to transfer to [facility] for Cardiac MRI (serviced not offered at [place]), patient has insurance/cost concerns Discharging clinician: Rachel Mcbride Anticipated date of transfer: 03/19/17 Receiving physician/facility: [facility] Transfer Discharge Sum: A/P - Plan Disposition: Transfer Other Transfer Discharge Sum: Hosp Hospital course: Mr. Rios is a 56 year old male with PMH of dilated nonischemic dilated cardiomyopathy, CHF, HTN, HLD, CAD who was admitted for CHF exacerbation. He was followed by cardiology and had a repeat 2D echo. 2D echo showed LVEF of 15- 20% which is a significant change from his prior study in August 2016. Echo also reported concern for cardiac amyloidosis. The billing representative (Dr. Jacobs, Dr. Peng ) at [facility] recommend a cardiac MRI which is not available at our facility due to which [facility] was consulted for transfer. Pt's care plan was discussed with the patient and his family, they all demonstrate understanding of the diagnosis and agree with the transfer plan. Pt will be transferred to [facility] pending bed availability. - Time Spent with Patient Total time spent providing and/or coordinating transfer services: Greater than 30 minutes Transfer Discharge Sum: Exam - Constitutional Vitals: Vital Signs Temp Pulse Resp BP Pulse Ox 03/19/17 08:05 98.5 F 90 19 148/60 95 03/19/17 03:09 99.3 F 91 18 109/81 98 03/18/17 23:23 99.7 F H 89 18 105/79 97 03/18/17 19:04 98.2 F 95 18 116/80 96 03/18/17 17:11 96 03/18/17 16:49 98.5 F 95 18 112/95 95 03/18/17 15:50 96 16 112/95 95 03/18/17 13:25 93 16 93 Intake and Output 03/18/17 03/19/17 03/19/17 23:59 07:59 15:59 Intake Total 240 / 240 120 / 120 Output Total 250 / 250 250 / 250 Balance -10 / -10 -250 / -250 120 / 120 Intake: Oral 120 / 120 120 / 120 Free Water 120 / 120 Output: Urine 250 / 250 250 / 250 Other: Meal ada pudding Percent of Meal Consumed 100% # Bowel Movements 0 Weight 92.7 kg Blood Glucose* 153 132 Patient Weight 03/19/17 23:59 Weight 92.7 kg General appearance: no acute distress - Head Head exam: Present: atraumatic, normocephalic - Eye Eye exam: Present: normal appearance, conjuntiva pink, sclera anicteric - Respiratory Respiratory exam: Present: rales (bibasilar). Absent: respiratory distress, wheezes - Cardiovascular Cardiovascular exam: Present: RRR, +S1, +S2 - GI/Abdominal GI/Abdominal exam: Present: normal bowel sounds, soft. Absent: tenderness - Extremities Exam Extremities exam: Present: full ROM, normal inspection, pedal edema. Absent: calf tenderness, tenderness - Neurological Exam Neurological exam: Present: oriented X3 - VTE Documentation of Mechanical Device: Graduated compression elastic hosiery
[2017-03-19 15:19] VITALS: BP 107/79
[2017-03-19 15:35] LABS: CK-BB (CK isoenzymes) 0 % (0-0); CK-MB (CK isoenzymes) 0 % (0-4); CK-MM (CK-isoenzymes) 100 % (96-100)
[2017-03-19 15:35] LABS: CK-BB (CK isoenzymes) 0 % (0-0); CK-MB (CK isoenzymes) 0 % (0-4); CK-MM (CK-isoenzymes) 100 % (96-100)
--- NOTE | 2017-03-19 18:15 | Electrocardiograph Report ---
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
--- NOTE | 2017-03-19 18:18 | Electrocardiograph Report ---
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
[2017-03-20 06:40] LABS: CK Total (Ck Isoenzymes) 55 U/L (20-200)
[2017-03-20 06:40] LABS: CK Total (Ck Isoenzymes) 55 U/L (20-200)
--- NOTE | 2017-03-20 16:29 | Electrocardiograph Report ---
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
== END 2017-03-19 18:35 | disposition other institution (70) | DRG 291 ==
LOC: 2ANU 11:48 → EMEROO 11:48 → SUATTDRO 15:28 → 2ANU 15:51 → 2NNU 19:37
PROVIDERS: ADMIT Hospitalist; ATTEND Internal Medicine